=== PATIENT | female | born 1950 | race African-American/Black ===

== ENCOUNTER → 2017-05-01 | Outpatient (CLI) | payer MEDICARE ==
[2016-06-11 17:15] VITALS: BP 136/63
[~2017-05-01] MED LIST: ASPI-630 PO; ATOR20TA58 PO; CARV6.252 PO; CRESTOR10 MG PO; GLIP5TAB10 PO; HYDR-963 PO; ISOS40TA11 PO; METF500T4 PO; OMEP20CA9 PO; ONDA4TAB10 SL; REGADENOSON 0.4 MG/5 ML DISP.SYRIN. IV ONE; SITA100T PO
--- NOTE | 2017-05-02 17:41 | RAD ---
APPROVED REPORT Test Type: Pharmacological Stress Nurse/Tech: Guillermina Benz R.N. Test Indications: chest pressure Cardiac History: HTN Medications: See Electronic Medical Record Medical History: See Electronic Medical Record Resting ECG: SR Resting Heart Rate: 63 bpm Resting Blood Pressure: 129/58mmHg Pretest Chest Pain: None Nurse/Tech Notes S1S2, lungs CTA Consent: The procedure was explained to the patient in lay terms. Informed consent was witnessed. Baldemar eout was entered into [employer]. History and Stress Test performed by RT Mariza (R) (N) Pharm. Details Pharmacologic stress testing was performed using 0.4mg per 5ml of regadenoson given intravenously ove r 7-10 seconds. Stress Symptoms dyspnea with chest pressure that went from front to back at a scale of 10/10 then eased up and resolv ed by the end of recovery period. T wave did become inverted in leads I-III,AVF, V4-V6 post lexiscan administration but resumed their normal upright position by the end of recovery period. POST EXERCISE Reason for Termination: Infusion complete Max HR: 101 bpm Max Blood Pressure: 132/62mmHg Blood Pressure response to exercise: Normal blood pressure response during stress. Heart Rate response to exercise: wnl Chest Pain: Yes. see above note Arrhythmia: No. ST Change: No. Imaging Protocol IMAGE PROTOCOL: Rest Tc-99m/stress Tc-99m 1 day Rest: Stress: Viability: Radiopharm.Tc99m [id number] Sestamibi Jygk55jPk 32mCi Duration 12min. 8min. Img Date 05/01/2017 05/01/2017 Rest Admin Site:IV - Left AntecubitalAdministrator:MAXINE Joshi, ARRT (R)(N) Stress Admin Site: IV - Left AntecubitalAdministrator: RT Mariza (R)(N) STRESS DATA End Diast. Vol.74.0mlAv. Heart Rate72.0bpm End Syst. Vol.19.0mlCO Index BSA0.0L/min Myocardial Zwma819.0gEject. Lppqjlpx79.0% Stress Rates Pk. Fill Rate3.21EDV/secLVtime Pk. Fill 225.29msec Pk. Empty Rate4.02ESV/secLVtime Pk. Ceyun445.12msec / Pk. Fill1.13EDV/sec Stress Scores Regional WT1.00Summed WT3.00 Regional WM0.00Summed WM0.00 LV Perf. Quant 17 Seg. SSS0.00 17 Seg. SRS1.00 17 Seg. SDS0.00 Stress Defect Extent (% LAD)0.00Rest Defect Extent (% LAD)0.00Rev. Defect Extent (% LAD)0.00 Stress Defect Extent (% LCX) 0.00Rest Defect Extent (% LCX)0.00Rev. Defect Extent (% LCX)0.00 Stress Defect Extent (% RCA)0.00Rest Defect Extent (% RCA)0.00Rev. Defect Extent (% RCA)0.00 Stress Defect Extent (% ABDIAS)0.00Rest Defect Extent (% ABDIAS)0.00Rev. Defect Extent (% ABDIAS)0.00 Conclusion 1. No electrocardiographic changes suggestive of myocardial ischemia with pharmacological stress. 2. No perfusion defects to suggest myocardial ischemia or scar. 3. Normal wall motion and wall thickening with an ejection fraction of 74%. 4. Scan indicates low risk for future cardiac events
== END | disposition home or self-care (01) ==
LOC: NM 08:15
PROVIDERS: ATTEND Specialist
DX: R07.9 Chest pain, unspecified (principal); I25.10 Atherosclerotic heart disease of native coronary artery without angina pectoris
CPT/HCPCS: 78452; 93017; 96374; 96375; 96376; A9500; J2785

== ENCOUNTER → 2017-07-28 | Outpatient (CLI) | payer MEDICARE ==
[2016-06-11 17:15] VITALS: BP 136/63
[~2017-07-28] MED LIST changes: -REGADENOSON 0.4 MG/5 ML DISP.SYRIN. IV ONE
--- NOTE | 2017-07-28 11:25 | RAD ---
MR of the right wrist Indication: Right wrist pain and swelling extending into the hand for one month. Severe pain. Technique: Standard multiplanar sequences are obtained. Findings: Triangular fibrocartilage: Mild signal heterogeneity at the ulnar attachment. No evidence of tear, however. Extensor carpi ulnaris tendon: Mild tendinosis signal. Other extensor compartments: Mild extensor digitorum tendon sheath fluid. Mild signal within some of the fourth extensor compartment tendons as well. Minimal fluid around the first extensor compartment tendons. Flexor tendons: Intact Median nerve: Unremarkable Scapholunate ligament: Mild heterogeneous signal but no evidence of rupture or discontinuity. Lunotriquetral ligament: No evidence of a tear. Fluid: No significant effusion. Joints: Mild primary osteoarthritis about the joints. This is greatest at the triscaphe. Bones: Bone marrow signal abnormality at the medial lunate, with subchondral surface involvement, demonstrating hypointense T1 and hyperintense or cystic T2 signal. No evidence of aggressive bone destruction or acute fracture. Scattered small carpal cysts are noted. Impression: 1. Mild fourth extensor compartment tenosynovitis. 2. Mild first compartment tendon sheath fluid or tenosynovitis. 3. Mild extensor carpi ulnaris tendinosis. 4. Marrow changes of the proximal medial lunate could be degenerative. This could also be secondary to ulnolunate impaction. Electronically signed by: Colin Roca MD (07/28/2017 11:22 AM) [id number]
== END | disposition home or self-care (01) ==
LOC: MRI 09:12
PROVIDERS: ATTEND Specialist
DX: M19.031 Primary osteoarthritis, right wrist (principal); M65.88 Other synovitis and tenosynovitis, other site
CPT/HCPCS: 73221

== ENCOUNTER 2020-04-09 23:52 | Observation (INO) | payer MEDICARE, MEDICAID ==
[~2020-04-09] VITALS: Ht 160 cm; Wt 69.2 kg
[~2020-04-09 23:52] MED LIST changes: +CARV6.2511 PO; -CARV6.252 PO; +HYDR-3135 PO; -HYDR-963 PO; +METF500T16 PO; -METF500T4 PO; +OMEP20CA16 PO; -OMEP20CA9 PO
[2020-04-10] VITALS (16 sets, daily range): BP systolic 129–178; BP diastolic 64–81
[2020-04-10 00:20] LABS: BILIRUBIN,URINE NEGATIVE (NEG); CLARITY,URINE CLEAR; COLOR,URINE YELLOW; NITRITE,URINE NEGATIVE (NEG); PROTEIN,URINE NEGATIVE (NEG-TRACE); UROBILINOGEN,URINE 0.2 mg/dL (0.2 mg/dL)
[2020-04-10 00:41] LABS: BASO % 1 % (0-3); EOS % 0 % (0-3); HEMATOCRIT 28.9 % (36.0-47.0); HEMOGLOBIN 9.7 g/dL (12.0-15.5); LYMPH # 0.3 x10^3/uL (1.0-4.8); LYMPH % 5 % (24-48); MEAN CORPUSCULAR HEMOGLOBIN 28 pg (25-35); MEAN CORPUSCULAR HGB CONC 33 g/dL (31-37); MEAN CORPUSCULAR VOLUME 82 fL (79-100); MONO # 0.1 x10^3/uL (0.0-1.1); MONO % 2 % (0-9); NEUT % 92 % (31-73); PLATELET COUNT 187 x10^3/uL (140-400); RED BLOOD COUNT 3.51 x10^6/uL (3.50-5.40); RED CELL DISTRIBUTION WIDTH 18.6 % (11.5-14.5); WHITE BLOOD COUNT 5.5 x10^3/uL (4.0-11.0)
--- NOTE | 2020-04-10 00:41 | PHYS DOC ---
Past Medical History Past Medical History: CAD, Cancer (Ovarian), Diabetes-Type II, DVT, GERD, Hypertension, IA Past Surgical History: Angioplasty, Other Additional Past Surgical Histo: WITH STENT PLACEMENT Smoking Status: Never Smoker Alcohol Use: Occasionally Drug Use: None General Adult EDM: Chief Complaint: CHEST PAIN HPI: HPI: Patient is a 69 year old female presents via EMS with report of left anterior chest pain which is been ongoing for the past 2 hours. Patient reports pain is reproducible on palpation. Patient reports taking 325 mg of aspirin prior to arrival as well as 2 nitroglycerin tablets sublingually. Reports pain continued and therefore called EMS. Patient denies dizziness, shortness of air, leg swelling, or calf tenderness. Patient also denies diaphoresis or current nausea. Patient does have significant cardiac risk factors including diabetes mellitus, high blood pressure, and prior CAD with stent placement. Patient reports she currently finished her first round of chemotherapy and radiation therapy for ovarian cancer at [facility]. Patient reports she was to start her second round of chemotherapy tomorrow. Denies trauma. Denies fever or chills. Denies known sick contacts. Denies known exposure to COVID19. Review of Systems: Review of Systems: Constitutional: Denies fever or chills Eyes: Denies redness or eye pain HENT: Denies nasal congestion or sore throat Respiratory: Denies cough or shortness of breath Cardiovascular: Reports chest pain; denies palpitations GI: Denies abdominal pain, nausea, or vomiting : Denies dysuria or hematuria Musculoskeletal: Denies back pain or joint pain Integument: Denies rash or skin lesions Neurologic: Denies headache, focal weakness or sensory changes Complete systems were reviewed and found to be within normal limits, except as documented in this note. Heart Score: HEART Score for Chest Pain: HEART Score for Chest Pain Response (Comments) Value History Moderately Suspicious 1 ECG Normal 0 Age > 65 2 Risk Factors >3 Risk Factors or Hx CAD 2 Troponin < Normal Limit 0 Total 5 Risk Factors: Risk Factors: DM, Current or recent (<one month) smoker, HTN, HLP, family history of CAD, obesity. Risk Scores: Score 0 - 3: 2.5% MACE over next 6 weeks - Discharge Home Score 4 - 6: 20.3% MACE over next 6 weeks - Admit for Clinical Observation Score 7 - 10: 72.7% MACE over next 6 weeks - Early Invasive Strategies Current Medications: Current Medications Medications (Trade) Dose Ordered Sig/Bassam Start Time Stop Time Status Last Admin Dose Admin Sodium Chloride 1,000 ml @ 1,000 mls/hr 1X ONCE 04/10/20 00:00 04/10/20 00:59 04/10/20 00:25 1,000 MLS/HR Allergies: Allergies: Allergies Coded Allergies Type Severity Reaction Last Updated Verified Sulfa (Sulfonamide Antibiotics) Allergy Intermediate ITCHING,BURNING FEELING 06/11/16 No oxycodone Allergy Intermediate ITCHING,BURNING 06/11/16 Yes Physical Exam: PE: Constitutional: Well developed, well nourished, no acute distress, non-toxic appearance HENT: Normocephalic, atraumatic, oropharynx moist Eyes: Conjunctiva normal, no discharge Neck: Normal range of motion, no tenderness, supple Cardiovascular: Heart rate normal, regular rhythm Lungs & Thorax: Bilateral breath sounds clear to auscultation, no wheezing, left anterior chest wall pain on palpation Abdomen: Soft, no tenderness Skin: Warm, dry, no erythema, no rash Extremities: No tenderness, ROM intact, no edema Neurologic: Alert and oriented X 3, no focal deficits noted Psychologic: Affect normal, judgment normal EKG: EKG: @0009 NSR at 84bpm, NO ST elevation, QRS 88ms, QT/QTc 348/414ms, Q wave III Radiology/Procedures: Radiology/Procedures: PROCEDURE: PORTABLE CHEST 1V AP portable chest radiograph 04/10/2020 Clinical History: Chest pain. An AP erect portable digital radiograph of the chest was obtained. A right internal jugular Bvyugu-t-Wkvv type catheter is seen with its tip extending to overlie the superior vena cava. Mild elevation of the right hemidiaphragm is noted. The cardiac silhouette is borderline enlarged. The thoracic aorta is tortuous. Atherosclerotic calcification of the thoracic aorta is seen. No acute pulmonary infiltrate is noted. No pneumothorax or pleural effusion is seen. Minimal S-shaped curvature of the thoracolumbar spine is noted. IMPRESSION: No acute abnormality is seen. Electronically signed by: Dennis Lopez MD (04/10/2020 1:48 AM) [id number] Course & Med Decision Making: Course & Med Decision Making Pertinent Labs and Imaging studies reviewed. (See chart for details) Patient presents with report of chest pain. Pain reproducible on palpation of left chest. Patient with significant cardiac risk factors. Also history of prior DVT and current ovarian cancer for which patient has started chemotherapy and radiation therapy. Patient had taken 324mg of Aspirin prior to arrival. EKG stable. Labs obtained and posted to chart. Initial troponin WNL. Creatinine elevated from prior. Unable to obtain CTA chest due to decreased renal function. CXR without acute process. D-dimer elevated. VQ scan ordered. Patient not tachycardic or hypoxia. No calf tenderness or unilateral leg swelling. PE less likely but still requiring further evaluation. Will hold empiric anticoagulation until VQ scan. Hyperglycemia addressed. HEART score 5. Patient requiring admission for further evaluation and treatment. Discussed with Dr. Sainz (hospitalist) who is in agreement with admission. Discussed findings and plan with patient and family, who acknowledge understanding and agreement. Bradley Disclaimer: Bradley Disclaimer: This electronic medical record was generated, in whole or in part, using a voice recognition dictation system. Departure Departure Impression: Primary Impression: Chest pain, rule out acute myocardial infarction Additional Impressions: Hyperglycemia Elevated d-dimer Acute renal insufficiency Disposition: ADMITTED INPATIENT Admitting Physician: FABRICE Carr) Condition: STABLE Referrals: CRYSTAL ESPINAL D.O. (PCP) BRII DANIELS DO April 10, 2020 00:41
[2020-04-10 00:51] LABS: CALCIUM 8.8 mg/dL (8.5-10.1); CREATININE 1.5 mg/dL (0.6-1.0); GFR 41.8; POTASSIUM 5.3 mmol/L (3.5-5.1)
[2020-04-10 00:58] LABS: ALBUMIN 3.7 g/dL (3.4-5.0); ALBUMIN/GLOBULIN RATIO 1.3 (1.0-1.7); MAGNESIUM 1.8 mg/dL (1.8-2.4); TOTAL BILIRUBIN 0.4 mg/dL (0.2-1.0); TOTAL PROTEIN 6.6 g/dL (6.4-8.2)
[2020-04-10] MEDS ORDERED: CONTRAST GIVEN. MC PRN (01:00)
[2020-04-10] MEDS ORDERED: IOHEXOL 350 MG/ML 100 ML VIAL. IV ONE (01:00)
[2020-04-10 01:06] LABS: BACTERIA,URINE MODERATE /HPF (0-FEW); SQUAMOUS EPITHELIAL CELL,UR FEW /LPF
[2020-04-10 01:19] LABS: CREATINE KINASE 113 U/L (26-192)
[2020-04-10 01:40] LABS: PROTHROMBIN TIME PATIENT 13.2 SEC (11.7-14.0)
[2020-04-10] MEDS ORDERED: ONDANSETRON PF 4 MG/2 ML VIAL. IV PRN (01:45)
[2020-04-10] MEDS ORDERED: fentaNYL PF VIAL 100 MCG/2 ML VIAL IV PRN (01:45)
[2020-04-10] MEDS ORDERED: DEXTROSE 50% 25 GM / 50ML DISP.SYRIN. IV PRN (01:45)
[2020-04-10] MEDS ORDERED: INSULIN REGULAR 100 UNIT/ML 3ML VIAL. SQ ONE (01:45)
--- NOTE | 2020-04-10 01:50 | RAD ---
AP portable chest radiograph 04/10/2020 Clinical History: Chest pain. An AP erect portable digital radiograph of the chest was obtained. A right internal jugular Iacqjo-y-Uvsg type catheter is seen with its tip extending to overlie the superior vena cava. Mild elevation of the right hemidiaphragm is noted. The cardiac silhouette is borderline enlarged. The thoracic aorta is tortuous. Atherosclerotic calcification of the thoracic aorta is seen. No acute pulmonary infiltrate is noted. No pneumothorax or pleural effusion is seen. Minimal S-shaped curvature of the thoracolumbar spine is noted. IMPRESSION: No acute abnormality is seen. Electronically signed by: Dennis Lopez MD (04/10/2020 1:48 AM) [id number]
[2020-04-10 01:56] LABS: D-DIMER 1.28 ug/mlFEU (0.00-0.50)
[2020-04-10 02:46] LABS: % BANDS 9 % (0-9); % LYMPHS 4 % (24-48); % MONOS 2 % (0-10); % SEGS 85 % (35-66); ANISOCYTOSIS SLIGHT; NUCLEATED RBC 1; PLT ESTIMATE ADEQUATE (ADEQUATE); TOXIC VACUOLATION SLIGHT
--- NOTE | 2020-04-10 06:43 | EKG ---
[facility] [address] [place] [address] Test Date: 2020-04-10 Test Time: 00:09:57 Pat Name: YOLANDE QUIÑONES Department: Room: 2 1 Gender: F Front Desk Agent: : [id number] Requested By: BRII DANIELS Order Number: [id number] Reading MD: Erick Urena Measurements Intervals Valders Rate: 84 P: 43 VA: 156 QRS: 31 QRSD: 88 T: 38 QT: 348 QTc: 414 Interpretive Statements SINUS RHYTHM Electronically Signed On 04-10-2020 8:44:40 CDT by Erick Urena
[2020-04-10] MEDS: INSULIN LISPRO 300 UNITS/3 ML VIAL. SQ SCH ×3 (08:00→18:27)
--- NOTE | 2020-04-10 09:24 | PDOC2 ---
VERÓNICA BRAVO [employer] 04/10/20 0924: CARDIAC CONSULT DATE OF CONSULT Date of Consult DATE: 04/10/20 TIME: 09:01 REASON FOR CONSULT Reason for Consult: chest pain r/o ACS REFERRING PHYSICIAN Referring Physician: Alistair SOURCE Source: Chart review, Patient HISTORY OF PRESENT ILLNESS HISTORY OF PRESENT ILLNESS This is a pleasant 69 yo female admitted for complains of chest pain. Reports that she has been having exertional CP in the last week and that she was just not telling her family about it. She has been feeling fatigue. 2 days ago she started feeling nauseated. Yesterday afternoon she started having sustained chest pressure that she finally took tylenol 3 and decided to take 2 NTG. No diaphoresis but positive for SOA. She has hx of NH and had stents placed >2 yrs ago x4 per her recollection. She has been taking ASA, lipitor and BP meds except that she was taken off losartan before. No recent falls or injury. No fever or chills or cough. Denies any renal dysfunction but her renal labs were abnormal. She does take metformin. She also take glipizde and januvia and takes insulin as well. Her ceramic saw tender is Dr. Young and the last time she saw3 her was 10/2019. PAST MEDICAL HISTORY Cardiovascular: CAD, HTN, NH, Hyperlipidemia CENTRAL NERVOUS SYSTEM: Periperal neuropathy Heme/Onc: Cancer (ovarian with chemo and radiation), Other (DVT LE) Hepatobiliary: No pertinent hx Musculoskeletal: Osteoarthritis Rheumatologic: No pertinent hx Infectious disease: No pertinent hx ENT: No pertinent hx Renal/: No pertinent hx Endocrine: Diabetes (2) Dermatology: No pertinent hx PAST SURGICAL HISTORY Past Surgical History: Hysterectomy, Other (portacath placement) FAMILY HISTORY Family History: Diabetes SOCIAL HISTORY Smoke: No ALCOHOL: occassional Drugs: None Lives: with Family CURRENT MEDICATIONS CURRENT MEDICATIONS Current Medications Medications (Trade) Dose Ordered Sig/Bassam Route PRN Reason Start Time Stop Time Status Last Admin Dose Admin Sodium Chloride 1,000 ml @ 1,000 mls/hr 1X ONCE IV 04/10/20 00:00 04/10/20 00:59 DC 04/10/20 00:25 Insulin Human Regular (HumuLIN R VIAL) 10 unit 1X ONCE SQ 04/10/20 01:45 04/10/20 01:51 DC 04/10/20 02:14 ALLERGIES ALLERGIES: Coded Allergies: Sulfa (Sulfonamide Antibiotics) (Unverified Allergy, Intermediate, ITCHING,BURNING FEELING, 04/10/20) oxycodone (Verified Allergy, Intermediate, ITCHING,BURNING, 04/10/20) PHYSICAL EXAM General: Alert, Oriented X3, Cooperative, No acute distress HEENT: Atraumatic, Mucous membr. moist/pink Lungs: Clear to auscultation, Normal air movement Heart: Regular rate (SR), Normal S1, Normal S2, No murmurs Abdomen: Soft, No tenderness Extremities: No cyanosis, No edema Skin: No breakdown, No significant lesion Neuro: Normal speech, Sensation intact Psych/Mental Status: Mental status NL, Mood NL MUSCULOSKELETAL: Osteoarthritic changes both hands VITALS/I&O VITALS/I&O: Vital Signs Date Time Temp Pulse Resp B/P (MAP) Pulse Ox O2 Delivery O2 Flow Rate FiO2 04/10/20 07:45 98.1 84 16 129/64 (85) 99 Room Air 98.1 I & O 04/09/20 04/09/20 04/10/20 14:59 22:59 06:59 Intake Total 0 ml Balance 0 ml LABS Lab: Laboratory Tests Test 04/10/20 00:03 04/10/20 00:22 04/10/20 02:25 04/10/20 04:45 Urine Collection Type Unknown Urine Color Yellow Urine Clarity Clear Urine pH 5.0 (<5.0-8.0) Urine Specific [place] >=1.030 (1.000-1.030) Urine Protein Negative mg/dL (NEG-TRACE) Urine Glucose (UA) >=1000 mg/dL (NEG) Urine Ketones (Stick) Negative mg/dL (NEG) Urine Blood Negative (NEG) Urine Nitrite Negative (NEG) Urine Bilirubin Negative (NEG) Urine Urobilinogen Dipstick 0.2 mg/dL (0.2 mg/dL) Urine Leukocyte Esterase Negative (NEG) Urine RBC 3-5 /HPF (0-2) Urine WBC 5-10 /HPF (0-4) Urine Squamous Epithelial Cells Few /LPF Urine Bacteria Moderate /HPF (0-FEW) White Blood Count 5.5 x10^3/uL (4.0-11.0) Red Blood Count 3.51 x10^6/uL (3.50-5.40) Hemoglobin 9.7 g/dL (12.0-15.5) L Hematocrit 28.9 % (36.0-47.0) L Mean Corpuscular Volume 82 fL (79-100) Mean Corpuscular Hemoglobin 28 pg (25-35) Mean Corpuscular Hemoglobin Concent 33 g/dL (31-37) Red Cell Distribution Width 18.6 % (11.5-14.5) H Platelet Count 187 x10^3/uL (140-400) Neutrophils (%) (Auto) 92 % (31-73) H Lymphocytes (%) (Auto) 5 % (24-48) L Monocytes (%) (Auto) 2 % (0-9) Eosinophils (%) (Auto) 0 % (0-3) Basophils (%) (Auto) 1 % (0-3) Neutrophils # (Auto) 5.0 x10^3/uL (1.8-7.7) Lymphocytes # (Auto) 0.3 x10^3/uL (1.0-4.8) L Monocytes # (Auto) 0.1 x10^3/uL (0.0-1.1) Eosinophils # (Auto) 0.0 x10^3/uL (0.0-0.7) Basophils # (Auto) 0.0 x10^3/uL (0.0-0.2) Segmented Neutrophils % 85 % (35-66) H Band Neutrophils % 9 % (0-9) Lymphocytes % 4 % (24-48) L Monocytes % 2 % (0-10) Nucleated Red Blood Cells 1 Toxic Vacuolation Slight Platelet Estimate Adequate (ADEQUATE) Anisocytosis Slight Prothrombin Time 13.2 SEC (11.7-14.0) Prothrombin Time INR 1.0 (0.8-1.1) Activated Partial Thromboplast Time 29 SEC (24-38) D-Dimer (Vanessa) 1.28 ug/mlFEU (0.00-0.50) H Sodium Level 139 mmol/L (136-145) Potassium Level 5.3 mmol/L (3.5-5.1) H Chloride Level 103 mmol/L (98-107) Carbon Dioxide Level 21 mmol/L (21-32) Anion Gap 15 (6-14) H Blood Urea Nitrogen 30 mg/dL (7-20) H Creatinine 1.5 mg/dL (0.6-1.0) H Estimated GFR (Cockcroft-Gault) 41.8 BUN/Creatinine Ratio 20 (6-20) Glucose Level 441 mg/dL (70-99) H Calcium Level 8.8 mg/dL (8.5-10.1) Magnesium Level 1.8 mg/dL (1.8-2.4) Total Bilirubin 0.4 mg/dL (0.2-1.0) Aspartate Amino Transferase (AST) 22 U/L (15-37) Alanine Aminotransferase (ALT) 19 U/L (14-59) Alkaline Phosphatase 110 U/L (46-116) Creatine Kinase 113 U/L (26-192) Creatine Kinase MB (Mass) < 0.5 ng/mL (0.0-3.6) Creatine Kinase MB Relative Index % (0-4) Troponin I Quantitative 0.037 ng/mL (0.000-0.055) 0.205 ng/mL (0.000-0.055) DB-Lgm-F-Type Natriuretic Peptide 123 pg/mL (0-124) Total Protein 6.6 g/dL (6.4-8.2) Albumin 3.7 g/dL (3.4-5.0) Albumin/Globulin Ratio 1.3 (1.0-1.7) Lipase 115 U/L (73-393) Glucose (Fingerstick) 318 mg/dL (70-99) H Test 04/10/20 07:13 04/10/20 07:27 Glucose (Fingerstick) 208 mg/dL (70-99) H Troponin I Quantitative 0.281 ng/mL (0.000-0.055) Laboratory Tests 04/10/20 00:22 Laboratory Tests 04/10/20 00:22 STRESS TEST STRESS TEST Conclusion 1. No electrocardiographic changes suggestive of myocardial ischemia with pharmacological stress. 2. No perfusion defects to suggest myocardial ischemia or scar. 3. Normal wall motion and wall thickening with an ejection fraction of 74%. 4. Scan indicates low risk for future cardiac events DATE: 05/02/17 2241 ASSESSMENT/PLAN ASSESSMENT/PLAN 1. Chest pain: consistent with UA. 2. MARY: treated with IVF. Prerenal 3. CAD: reported 4 stents >2 yrs ago 4. HTN: controlled 5. HLP 6. Ovarian CA: taking chemotherapy, reported no mets. 7. DM2: per PCP Recommendations 1. LHC today pending labs, risks and benefits explained and agreeable to proceed 2. Will restart IVF. Hold metformin. 3. Consider discontinuing glipizide with concomitant use of insulin at home. She does have hypoglycemia episode at home 4. Continue ASA and optimize statin. 5. TTE, TSH and lipids. EKG MAGGY LR MD 04/10/20 1656: CARDIAC CONSULT ASSESSMENT/PLAN ASSESSMENT/PLAN Patient seen and examined. Agree with above nurse practitioner note. Cardiac catheterization revealed a critical left circumflex stenosis. She und erwent successful PCI. Supportive care. See cath report for full details VERÓNICA BRAVO APRN April 10, 2020 09:24 MAGGY LR MD April 10, 2020 16:56
[2020-04-10 09:28] LABS: CALCIUM 8.6 mg/dL (8.5-10.1); CREATININE 1.1 mg/dL (0.6-1.0); GFR 59.8; POTASSIUM 3.9 mmol/L (3.5-5.1)
[2020-04-10] MEDS ORDERED: IV NORMAL SALINE 1000ML BAG 1,000 ML IV ONE ×2 (09:30)
[2020-04-10 09:34] LABS: MAGNESIUM 1.9 mg/dL (1.8-2.4)
[2020-04-10 09:38] LABS: CHOLESTEROL/HDL RATIO 3.4
[2020-04-10] MEDS ORDERED: LIDOCAINE 1% Multi-Dose 20 ML VIAL. ONE (10:02)
[2020-04-10] MEDS ORDERED: IODIXANOL 320 MG/ML 100 ML VIAL. ONE (10:02)
[2020-04-10] MEDS ORDERED: MIDAZOLAM HCL/PF 2 MG/2 ML VIAL. ONE ×2 (10:10→10:57)
[2020-04-10] MEDS ORDERED: fentaNYL PF VIAL 100 MCG/2 ML VIAL ONE (10:10)
[2020-04-10] MEDS ORDERED: VERAPAMIL 5 MG/2 ML VIAL. ONE (10:40)
[2020-04-10] MEDS ORDERED: HEPARIN for IV BOLUS 10,000 UNIT/10 ML VIAL. ONE (10:40)
[2020-04-10] MEDS ORDERED: NITROGLYCERIN 200 MCG/2 ML SYRINGE FOR CATH/VASC LAB. ONE (10:41)
--- NOTE | 2020-04-10 10:48 | PDOC1 ---
History and Physical Date of Admission Date of Admission 04/10/2020 Identification/Chief Complaint Chief Complaint my chest hurts Source Source: Chart review History of Present Illness History of Present Illness Patient is a 69-year-old female with past medical history of coronary artery disease and diabetes mellitus who comes in to our institution with sudden onset of chest discomfort which is located on the precordial area. She refers radiation to under his arm and also radiation to the back. She describes the pain as a pressure-like sensation lasting at least 5 minutes no aggravating factors no alleviating factors. Patient tried to self medicate with aspirin Tylenol 3 and nitroglycerin with very little relief of her symptoms reason why she decided to come to the emergency department for further evaluation and treatment. The patient was also check for d-dimer and it was mildly elevated given that the patient has a history of ovarian cancer and is undergoing chemotherapy at the present time she is at high risk for hypercoagulable states. She also has a renal dysfunction reason why she could not get an CT scan of her chest at this time. VQ scan has been requested as per ER physician and at the time of my evaluation the patient is in no acute distress no chest discomfort has been reported overnight she denies sensation of impending doom no diaphoresis no nausea vomiting no diarrhea no other symptoms associated with her chest discomfort. The patient denies sick contacts no cough sputum production no pleurisy has been reported pain is somewhat reproducible which is reassuring but given her comorbidities and her history of coronary artery disease she will be admitted for further cardiological evaluation. Reassurance has been provided and the plan of care discussed in detail all concerns were addressed to the best of my abilities Past Medical History Cardiovascular: CAD, HTN, DC, Hyperlipidemia CENTRAL NERVOUS SYSTEM: Periperal neuropathy Heme/Onc: Cancer (ovarian with chemo and radiation), Other (DVT LE) Hepatobiliary: No pertinent hx Rheumatologic: No pertinent hx Infectious disease: No pertinent hx ENT: No pertinent hx Renal/: No pertinent hx Endocrine: Diabetes (2) Dermatology: No pertinent hx Past Surgical History Past Surgical History: Hysterectomy, Other (portacath placement) Family History Family History: Diabetes Social History Smoke: No ALCOHOL: occassional Drugs: None Current Problem List Problem List Problems Medical Problems: (1) Acute renal insufficiency Status: Acute (2) Chest pain, rule out acute myocardial infarction Status: Acute (3) Elevated d-dimer Status: Acute (4) Hyperglycemia Status: Acute Current Medications Current Medications Current Medications Medications (Trade) Dose Ordered Sig/Bassam Start Time Stop Time Status Last Admin Dose Admin Dextrose (Dextrose 50%-Water Syringe) 12.5 gm PRN Q15MIN PRN 04/10/20 01:45 Fentanyl Citrate (Fentanyl 2ml Vial) 100 mcg STK-MED ONCE 04/10/20 10:10 04/10/20 10:10 DC Heparin Sodium (Porcine) (Heparin Sodium) 10,000 unit STK-MED ONCE 04/10/20 10:40 04/10/20 10:41 DC Heparin Sodium/ Sodium Chloride 1,000 ml @ As Directed STK-MED ONCE 04/10/20 10:02 04/10/20 10:02 DC Info (CONTRAST GIVEN -- Rx MONITORING) 1 each PRN DAILY PRN 04/10/20 01:00 04/12/20 00:59 Insulin Human Lispro (HumaLOG) 0-5 UNITS TIDWMEALS 04/10/20 08:00 Insulin Human Regular (HumuLIN R VIAL) 10 unit 1X ONCE 04/10/20 01:45 04/10/20 01:51 DC 04/10/20 02:14 10 UNIT Iodixanol (Visipaque 320) 100 ml STK-MED ONCE 04/10/20 10:02 04/10/20 10:02 DC Iohexol (Omnipaque 350 Mg/ml) 100 ml 1X ONCE 04/10/20 01:00 04/10/20 01:01 DC Lidocaine HCl (Lidocaine 1% 20ml Vial) 20 ml STK-MED ONCE 04/10/20 10:02 04/10/20 10:02 DC Midazolam HCl (Versed) 2 mg STK-MED ONCE 04/10/20 10:10 04/10/20 10:10 DC Nitroglycerin (Nitroglycerin) 200 mcg STK-MED ONCE 04/10/20 10:41 04/10/20 10:41 DC Ondansetron HCl (Zofran) 4 mg PRN Q8HRS PRN 04/10/20 01:45 04/11/20 01:44 Sodium Chloride 1,000 ml @ 100 mls/hr 1X ONCE 04/10/20 09:30 04/10/20 19:29 04/10/20 09:38 100 MLS/HR Verapamil HCl (Verapamil) 5 mg STK-MED ONCE 04/10/20 10:40 04/10/20 10:41 DC Allergies Allergies Allergies Coded Allergies Type Severity Reaction Last Updated Verified Sulfa (Sulfonamide Antibiotics) Allergy Intermediate ITCHING,BURNING FEELING 04/10/20 No oxycodone Allergy Intermediate ITCHING,BURNING 04/10/20 Yes ROS Review of System CONSTITUTIONAL: No fever or chills EYES: No recent changes SKIN: No rash or itching CARDIOVASCULAR: No chest pain, syncope, palpitations, or edema RESPIRATORY: No SOB or cough GASTROINTESTINAL: No nausea, vomiting or abdominal pain NEUROLOGICAL: No headaches or weakness ENDOCRINE: No cold or heat intolerance GENITOURINARY: No urgency or frequency of urination MUSCULOSKELETAL: No back pain or joint pain LYMPHATICS: No enlarged lymph nodes PSYCHIATRIC: No anxiety or depression Physical Exam Physical Exam GEN.: No apparent distress. Alert and oriented. HEENT: Head is normocephalic, atraumatic NECK: Supple. LUNGS: Clear to auscultation. HEART: RRR, S1, S2 present. Peripheral pulses intact ABDOMEN: Soft, nontender. Positive bowel sounds. EXTREMITIES: Without any cyanosis. NEUROLOGIC: Normal speech, normal tone PSYCHIATRIC: Normal affect, normal mood. SKIN: No ulcerations Vitals Vitals Vital Signs Date Time Temp Pulse Resp B/P (MAP) Pulse Ox O2 Delivery O2 Flow Rate FiO2 04/10/20 08:30 Room Air 04/10/20 07:45 98.1 84 16 129/64 (85) 99 98.1 Labs Labs Laboratory Tests Test 04/10/20 00:03 04/10/20 00:22 04/10/20 02:25 04/10/20 04:45 Urine Collection Type Unknown Urine Color Yellow Urine Clarity Clear Urine pH 5.0 (<5.0-8.0) Urine Specific Taylors >=1.030 (1.000-1.030) Urine Protein Negative mg/dL (NEG-TRACE) Urine Glucose (UA) >=1000 mg/dL (NEG) Urine Ketones (Stick) Negative mg/dL (NEG) Urine Blood Negative (NEG) Urine Nitrite Negative (NEG) Urine Bilirubin Negative (NEG) Urine Urobilinogen Dipstick 0.2 mg/dL (0.2 mg/dL) Urine Leukocyte Esterase Negative (NEG) Urine RBC 3-5 /HPF (0-2) Urine WBC 5-10 /HPF (0-4) Urine Squamous Epithelial Cells Few /LPF Urine Bacteria Moderate /HPF (0-FEW) White Blood Count 5.5 x10^3/uL (4.0-11.0) Red Blood Count 3.51 x10^6/uL (3.50-5.40) Hemoglobin 9.7 g/dL (12.0-15.5) Hematocrit 28.9 % (36.0-47.0) Mean Corpuscular Volume 82 fL (79-100) Mean Corpuscular Hemoglobin 28 pg (25-35) Mean Corpuscular Hemoglobin Concent 33 g/dL (31-37) Red Cell Distribution Width 18.6 % (11.5-14.5) Platelet Count 187 x10^3/uL (140-400) Neutrophils (%) (Auto) 92 % (31-73) Lymphocytes (%) (Auto) 5 % (24-48) Monocytes (%) (Auto) 2 % (0-9) Eosinophils (%) (Auto) 0 % (0-3) Basophils (%) (Auto) 1 % (0-3) Neutrophils # (Auto) 5.0 x10^3/uL (1.8-7.7) Lymphocytes # (Auto) 0.3 x10^3/uL (1.0-4.8) Monocytes # (Auto) 0.1 x10^3/uL (0.0-1.1) Eosinophils # (Auto) 0.0 x10^3/uL (0.0-0.7) Basophils # (Auto) 0.0 x10^3/uL (0.0-0.2) Segmented Neutrophils % 85 % (35-66) Band Neutrophils % 9 % (0-9) Lymphocytes % 4 % (24-48) Monocytes % 2 % (0-10) Nucleated Red Blood Cells 1 Toxic Vacuolation Slight Platelet Estimate Adequate (ADEQUATE) Anisocytosis Slight Prothrombin Time 13.2 SEC (11.7-14.0) Prothromb Time International Ratio 1.0 (0.8-1.1) Activated Partial Thromboplast Time 29 SEC (24-38) D-Dimer (Vanessa) 1.28 ug/mlFEU (0.00-0.50) Sodium Level 139 mmol/L (136-145) Potassium Level 5.3 mmol/L (3.5-5.1) Chloride Level 103 mmol/L (98-107) Carbon Dioxide Level 21 mmol/L (21-32) Anion Gap 15 (6-14) Blood Urea Nitrogen 30 mg/dL (7-20) Creatinine 1.5 mg/dL (0.6-1.0) Estimated GFR (Cockcroft-Gault) 41.8 BUN/Creatinine Ratio 20 (6-20) Glucose Level 441 mg/dL (70-99) Calcium Level 8.8 mg/dL (8.5-10.1) Magnesium Level 1.8 mg/dL (1.8-2.4) 1.9 mg/dL (1.8-2.4) Total Bilirubin 0.4 mg/dL (0.2-1.0) Aspartate Amino Transf (AST/SGOT) 22 U/L (15-37) Alanine Aminotransferase (ALT/SGPT) 19 U/L (14-59) Alkaline Phosphatase 110 U/L (46-116) Creatine Kinase 113 U/L (26-192) Creatine Kinase MB (Mass) < 0.5 ng/mL (0.0-3.6) Creatine Kinase MB Relative Index % (0-4) Troponin I Quantitative 0.037 ng/mL (0.000-0.055) 0.205 ng/mL (0.000-0.055) CI-Edl-S-Type Natriuretic Peptide 123 pg/mL (0-124) Total Protein 6.6 g/dL (6.4-8.2) Albumin 3.7 g/dL (3.4-5.0) Albumin/Globulin Ratio 1.3 (1.0-1.7) Lipase 115 U/L (73-393) Glucose (Fingerstick) 318 mg/dL (70-99) Triglycerides Level 58 mg/dL (0-150) Cholesterol Level 171 mg/dL (0-200) LDL Cholesterol, Calculated 108 mg/dL (0-100) VLDL Cholesterol, Calculated 12 mg/dL (0-40) Non-HDL Cholesterol Calculated 120 mg/dL (0-129) HDL Cholesterol 51 mg/dL (40-60) Cholesterol/HDL Ratio 3.4 Thyroid Stimulating Hormone (TSH) 0.189 uIU/mL (0.358-3.74) Test 04/10/20 07:13 04/10/20 07:27 Glucose (Fingerstick) 208 mg/dL (70-99) Sodium Level 144 mmol/L (136-145) Potassium Level 3.9 mmol/L (3.5-5.1) Chloride Level 108 mmol/L (98-107) Carbon Dioxide Level 23 mmol/L (21-32) Anion Gap 13 (6-14) Blood Urea Nitrogen 27 mg/dL (7-20) Creatinine 1.1 mg/dL (0.6-1.0) Estimated GFR (Cockcroft-Gault) 59.8 Glucose Level 231 mg/dL (70-99) Calcium Level 8.6 mg/dL (8.5-10.1) Troponin I Quantitative 0.281 ng/mL (0.000-0.055) Laboratory Tests Test 04/10/20 00:03 04/10/20 00:22 04/10/20 02:25 04/10/20 04:45 Urine Collection Type Unknown Urine Color Yellow Urine Clarity Clear Urine pH 5.0 (<5.0-8.0) Urine Specific Taylors >=1.030 (1.000-1.030) Urine Protein Negative mg/dL (NEG-TRACE) Urine Glucose (UA) >=1000 mg/dL (NEG) Urine Ketones (Stick) Negative mg/dL (NEG) Urine Blood Negative (NEG) Urine Nitrite Negative (NEG) Urine Bilirubin Negative (NEG) Urine Urobilinogen Dipstick 0.2 mg/dL (0.2 mg/dL) Urine Leukocyte Esterase Negative (NEG) Urine RBC 3-5 /HPF (0-2) Urine WBC 5-10 /HPF (0-4) Urine Squamous Epithelial Cells Few /LPF Urine Bacteria Moderate /HPF (0-FEW) White Blood Count 5.5 x10^3/uL (4.0-11.0) Red Blood Count 3.51 x10^6/uL (3.50-5.40) Hemoglobin 9.7 g/dL (12.0-15.5) Hematocrit 28.9 % (36.0-47.0) Mean Corpuscular Volume 82 fL (79-100) Mean Corpuscular Hemoglobin 28 pg (25-35) Mean Corpuscular Hemoglobin Concent 33 g/dL (31-37) Red Cell Distribution Width 18.6 % (11.5-14.5) Platelet Count 187 x10^3/uL (140-400) Neutrophils (%) (Auto) 92 % (31-73) Lymphocytes (%) (Auto) 5 % (24-48) Monocytes (%) (Auto) 2 % (0-9) Eosinophils (%) (Auto) 0 % (0-3) Basophils (%) (Auto) 1 % (0-3) Neutrophils # (Auto) 5.0 x10^3/uL (1.8-7.7) Lymphocytes # (Auto) 0.3 x10^3/uL (1.0-4.8) Monocytes # (Auto) 0.1 x10^3/uL (0.0-1.1) Eosinophils # (Auto) 0.0 x10^3/uL (0.0-0.7) Basophils # (Auto) 0.0 x10^3/uL (0.0-0.2) Segmented Neutrophils % 85 % (35-66) Band Neutrophils % 9 % (0-9) Lymphocytes % 4 % (24-48) Monocytes % 2 % (0-10) Nucleated Red Blood Cells 1 Toxic Vacuolation Slight Platelet Estimate Adequate (ADEQUATE) Anisocytosis Slight Prothrombin Time 13.2 SEC (11.7-14.0) Prothromb Time International Ratio 1.0 (0.8-1.1) Activated Partial Thromboplast Time 29 SEC (24-38) D-Dimer (Vaenssa) 1.28 ug/mlFEU (0.00-0.50) Sodium Level 139 mmol/L (136-145) Potassium Level 5.3 mmol/L (3.5-5.1) Chloride Level 103 mmol/L (98-107) Carbon Dioxide Level 21 mmol/L (21-32) Anion Gap 15 (6-14) Blood Urea Nitrogen 30 mg/dL (7-20) Creatinine 1.5 mg/dL (0.6-1.0) Estimated GFR (Cockcroft-Gault) 41.8 BUN/Creatinine Ratio 20 (6-20) Glucose Level 441 mg/dL (70-99) Calcium Level 8.8 mg/dL (8.5-10.1) Magnesium Level 1.8 mg/dL (1.8-2.4) 1.9 mg/dL (1.8-2.4) Total Bilirubin 0.4 mg/dL (0.2-1.0) Aspartate Amino Transf (AST/SGOT) 22 U/L (15-37) Alanine Aminotransferase (ALT/SGPT) 19 U/L (14-59) Alkaline Phosphatase 110 U/L (46-116) Creatine Kinase 113 U/L (26-192) Creatine Kinase MB (Mass) < 0.5 ng/mL (0.0-3.6) Creatine Kinase MB Relative Index % (0-4) Troponin I Quantitative 0.037 ng/mL (0.000-0.055) 0.205 ng/mL (0.000-0.055) AH-Dnh-S-Type Natriuretic Peptide 123 pg/mL (0-124) Total Protein 6.6 g/dL (6.4-8.2) Albumin 3.7 g/dL (3.4-5.0) Albumin/Globulin Ratio 1.3 (1.0-1.7) Lipase 115 U/L (73-393) Glucose (Fingerstick) 318 mg/dL (70-99) Triglycerides Level 58 mg/dL (0-150) Cholesterol Level 171 mg/dL (0-200) LDL Cholesterol, Calculated 108 mg/dL (0-100) VLDL Cholesterol, Calculated 12 mg/dL (0-40) Non-HDL Cholesterol Calculated 120 mg/dL (0-129) HDL Cholesterol 51 mg/dL (40-60) Cholesterol/HDL Ratio 3.4 Thyroid Stimulating Hormone (TSH) 0.189 uIU/mL (0.358-3.74) Test 04/10/20 07:13 04/10/20 07:27 Glucose (Fingerstick) 208 mg/dL (70-99) Sodium Level 144 mmol/L (136-145) Potassium Level 3.9 mmol/L (3.5-5.1) Chloride Level 108 mmol/L (98-107) Carbon Dioxide Level 23 mmol/L (21-32) Anion Gap 13 (6-14) Blood Urea Nitrogen 27 mg/dL (7-20) Creatinine 1.1 mg/dL (0.6-1.0) Estimated GFR (Cockcroft-Gault) 59.8 Glucose Level 231 mg/dL (70-99) Calcium Level 8.6 mg/dL (8.5-10.1) Troponin I Quantitative 0.281 ng/mL (0.000-0.055) VTE Prophylaxis Ordered VTE Prophylaxis Devices: Yes VTE Pharmacological Prophylaxi: No Assessment/Plan Assessment/Plan Chest pain rule out ACS Hypertension essential History of diabetes mellitus type 2 insulin requiring Ovarian cancer status post chemotherapy and radiation currently on hold, she was scheduled to start her chemotherapy today and she is unsure of her current regimen. Paresthesias? Versus neuropathy? Chemotherapy related? Plan Cardiology evaluation Resume home medications Further recommendations based on the clinical course DVT prophylaxis with SCD ALIDA GOMEZ MD April 10, 2020 10:48
[2020-04-10] MEDS ORDERED: VERAPAMIL 5 MG/2 ML VIAL. IART ONE (11:00)
[2020-04-10] MEDS ORDERED: HEPARIN for IV BOLUS 10,000 UNIT/10 ML VIAL. IART ONE (11:00)
[2020-04-10] MEDS ORDERED: LIDOCAINE 1% Multi-Dose 20 ML VIAL. INJ ONE (11:00)
[2020-04-10] MEDS ORDERED: fentaNYL PF VIAL 100 MCG/2 ML VIAL IV ONE (11:00)
[2020-04-10] MEDS ORDERED: NITROGLYCERIN 200 MCG/2 ML SYRINGE FOR CATH/VASC LAB. IART ONE (11:00)
[2020-04-10] MEDS ORDERED: IODIXANOL 320 MG/ML 100 ML VIAL. IART ONE (11:00)
[2020-04-10] MEDS ORDERED: MIDAZOLAM HCL/PF 2 MG/2 ML VIAL. IV ONE (11:00)
--- NOTE | 2020-04-10 11:15 | NUR ---
This RN gave report to SHYANN Chen on 2N at 1110. Pt currently in catheterization laboratory technician and will transfer to room 205 after completion.
[2020-04-10] MEDS ORDERED: HEPARIN for IV BOLUS 10,000 UNIT/10 ML VIAL. IV ONE (11:30)
[2020-04-10] MEDS ORDERED: PRASUGREL 10 MG TABLET. ONE (11:44)
[2020-04-10] MEDS ORDERED: NITROGLYCERIN 200 MCG/2 ML SYRINGE FOR CATH/VASC LAB. ICAR ONE (11:45)
[2020-04-10] MEDS ORDERED: PRASUGREL 10 MG TABLET. PO ONE (11:45)
--- NOTE | 2020-04-10 12:57 | NUR ---
SS following for discharge planning. SS reviewed pt chart and discussed with pt RN. Pt transferred to room 205. Pt is from home and is currently requiring oxygen. Cardiology consulted. SS will continue to follow for discharge planning.
--- NOTE | 2020-04-10 13:03 | CARD ---
MR#: [id number] Date of Study: 04/10/2020 Ordering Physician: MAGGY LR, Referring Physician: MAGGY LR, Tech: RT Asif (R) APPROVED REPORT Technologist: RT Asif (R) Nurse: Guillermina Benz R.N. Procedure(s) performed: Sedation Time: 73 minutes Dose: 81.33 Gycm2 Fluoro Time: 13.0 Contrast: 99 mL Visipaque Coronary angiography Complex PCI of the LCx HISTORY : The patient is a 69 year-old female with a history of . INDICATION The indication(s) include : non-STEMI . CS Clinical Frailty Scale [facility] Clinical Frailty Scale: Mildly Frail Heart Failure Heart Failure: No CASE TECHNIQUE During this case, Fluoroscopy and low osmolar contrast were used for imaging. PROCEDURE NARRATIVE INFORMED CONSENT: After explaining the risks and benefits of the procedure and alternatives, informed consent was obtained. The patient was brought electively to the cardiac catheterization lab. A timeout was performed confi rming the patient's name, date of , procedure, and site of procedure. All necessary personnel w ere wearing the appropriate protective equipment and radiation monitor devices. (See nursing notes for medications administered). ACCESS: The right wrist was sterilely prepped and draped in the usual fashion. The right wrist was infiltrat ed with 1 mL of 2% lidocaine for subcutaneous anesthesia. A 6 Welsh Terumo glide sheath was inserte d into the right radial artery without difficulty. CORONARY ANGIOGRAPHY: Right and left coronary angiography was performed using a 5Fr TIG 4.0 catheter. All catheter exchan ges and advancements were performed over a guidewire. CLOSURE: At case completion the right radial sheath was removed and a Terumo radial band was applied with 13 m l of air. COMPLICATIONS: The patient tolerated the procedure well and there were no immediate complications. FINDINGS: HEMODYNAMICS: AO: 160/80 CORONARY ANGIOGRAPHY: LM is a large caliber vessel with normal angiographic appearance. LAD is a large caliber vessel with mild luminal irregularities. D1 is a moderate caliber vessel with normal angiographic apeparance. LCx is a large caliber dominant vessel with normal angiographic appearance. OM1 is a small caliber vessel wtih normal angiographic appeance. OM2 is a moderate caliber vessel with a mid 90% stenosis, followed by a patent stent. LPDA is a small to moderate caliber vessel wtih normal angiographic appearance. RCA is a small caliber non-dominant vessel with moderate diffuse irregularities. Interventional technique: PCI of OM2 Due to significant subclavian tortuosity and radial artery spasm further intervention was unable to b e performed via the radial artery. Right groin access was obtained with an 18-gauge needle and a 6 F rench sheath was placed in the right common femoral artery under 2% lidocaine local anesthesia. Next , a 5 Welsh EBU 3.5 guide catheter was used to engage the left main coronary artery. Next, a pro-wa ter wire was used to advance past the stenosis. This case was complex due to tortuosity involving th e left main and circumflex vessels as well as radial artery spasm requiring second access site. The lesion was then angioplastied with a 3.0 x 12 mm balloon and then stented with a 3.25 x 15 mm Alpine drug-eluting stent. Post PCI angiography demonstrated excellent stent expansion with ISRRAEL-3 flow in the vessel no evidence of guidewire related complications. The patient received Prasugrel 60mg at edward e completion. ISRRAEL Flow ISRRAEL Flow (Pre-Intervention): ISRRAEL-3 ISRRAEL Flow (Post-Intervention): ISRRAEL-3 Conclusion 1. Two vessel coronary disease. 2. Patent distal OM2 stent. 3. Successful PCI of the OM2 with implantation of a 3.25/15 YAMILE in an overlapping fashion with the pr evious distal stent. Recommendations 1. ASA 81mg daily 2. Prasugrel 10mg daily 3. High dose statin therapy Signed by : Maggy Lr, Electronically Approved : 04/10/2020 13:03:26
--- NOTE | 2020-04-10 13:22 | RAD ---
Examination: Nuclear medicine perfusion scan Clinical History: Chest pain, elevated d-dimer. Technique: 5.5 mCi of Tc 99m MAA was administered intravenously and spot views were obtained on the gamma camera for a Nuclear Medicine perfusion examination. Static images were reviewed Findings: Perfusion images are homogeneous without perfusion defects. This is very low probability for pulmonary embolism based on the modified PIOPED criteria. Impression: Very low probability for pulmonary embolism. Electronically signed by: Milton Arauz MD (04/10/2020 1:19 PM) [id number]
--- NOTE | 2020-04-10 18:01 | EKG ---
[facility] [address] [place] [address] Test Date: 2020-04-10 Test Time: 17:54:40 Pat Name: YOLANDE QUIÑONES Department: Room: 205 1 Gender: F Steel Molder: ALEXANDRE : 1950 Requested By: MAGGY LR Order Number: [id number] Reading MD: Erick Urena Measurements Intervals [place] Rate: 75 P: 34 MD: 152 QRS: 24 QRSD: 84 T: 26 QT: 350 QTc: 393 Interpretive Statements SINUS RHYTHM NORMAL ECG RI6.02 Compared to ECG 04/10/2020 00:09:57 No significant changes Electronically Signed On 04-11-2020 8:07:19 CDT by Erick Urena
[2020-04-10] MEDS ORDERED: CARVEDILOL 6.25 MG TABLET. PO SCH (19:00)
[2020-04-10] MEDS ORDERED: HYDROcodone/APAP 10/325 1 TAB TABLET PO PRN (20:00)
[2020-04-10] MEDS ORDERED: ATORVASTATIN CALCIUM 40 MG TABLET. PO SCH (21:00)
[2020-04-10] MEDS: CARVEDILOL 6.25 MG TABLET. PO SCH (21:46)
[2020-04-10] MEDS ORDERED: ONDANSETRON ODT 4 MG TAB.RAPDIS. PO PRN (22:00)
[2020-04-11] VITALS (16 sets, daily range): BP systolic 73–150; BP diastolic 35–79
[2020-04-11] MEDS ORDERED: PANTOPRAZOLE 40 MG TABLET.DR. PO SCH (07:30)
[2020-04-11] MEDS: INSULIN LISPRO 300 UNITS/3 ML VIAL. SQ SCH ×3 (08:00→17:54)
[2020-04-11] MEDS: glipiZIDE 5 MG TABLET PO SCH ×2 (08:39→17:50)
[2020-04-11] MEDS: CARVEDILOL 6.25 MG TABLET. PO SCH ×2 (08:41→17:00)
[2020-04-11] MEDS ORDERED: ISOSORBIDE MONONITRATE ER 30 MG TAB.ER.24H PO SCH (09:00)
[2020-04-11] MEDS ORDERED: ASPIRIN CHEWABLE 81 MG TABLET. PO SCH (09:00)
[2020-04-11] MEDS ORDERED: LINAGLIPTIN 5 MG TABLET PO SCH (09:00)
[2020-04-11] MEDS ORDERED: ATORVASTATIN CALCIUM 20 MG TABLET PO SCH (09:00)
[2020-04-11] MEDS ORDERED: PRASUGREL 10 MG TABLET. PO SCH (09:45)
--- NOTE | 2020-04-11 10:41 | CARD ---
MR#: [id number] Date of Study: 04/11/2020 Ordering Physician: VERÓNICA BRAVO, Referring Physician: VERÓNICA BRAVO, Tech: Kristin Lima APPROVED REPORT EXAM: Two-dimensional and M-mode echocardiogram with Doppler and color Doppler. Other Information Quality : AverageHR: 67bpm INDICATION Palpitations Cardiac Disease: CAD RISK FACTORS Hypertension Diabetes 2D DIMENSIONS Left Atrium(2D)3.7 (1.6-4.0cm)IVSd1.0 (0.7-1.1cm) Aortic Root(2D)2.8 (2.0-3.7cm)LVDd4.5 (3.9-5.9cm) LVOT Diameter1.8 (1.8-2.4cm)PWd1.0 (0.7-1.1cm) LVDs2.5 (2.5-4.0cm)FS (%) 43.0 % SV67.1 mlLVEF(%)74.3 (>50%) Aortic Valve AoV Peak Tulio.154.3cm/sAoV VTI38.4cm AO Peak GR.9.5mmHgLVOT Peak Tulio.99.8cm/s LVOT VTI 23.46cmAO Mean GR.6mmHg SURY (VMAX)1.96yz5UIC (VTI)1.55cm2 Mitral Valve MV E Dtqboqhp165.7cm/sMV DECEL VPJK863ua MV A Msjzrebl33.6cm/sMV TNC93ez E/A Ratio1.4MVA (PHT)3.63cm2 TDI E/Lateral E'17.5E/Medial E'21.1 Pulmonary Valve PV Peak Ikdbwlwq27.0cm/sPV Peak Grad.3mmHg Tricuspid Valve TR P. Haikknza911jj/sRAP [id number] TR Peak Gr.55lvWbVEGL96fmJe Pulmonary Vein S1 Foqeutve96.6cm/sD2 Mkmmthzl32.4cm/s PVa yqjfmcve490vbmr LEFT VENTRICLE The left ventricle is normal size. There is normal left ventricular wall thickness. The left ventricu lar systolic function is normal. The Ejection Fraction is 55-60%. There is normal LV segmental wall m otion. Transmitral Doppler flow pattern is Grade II-pseudonormal filling dynamics. RIGHT VENTRICLE The right ventricle is normal size. There is normal right ventricular wall thickness. The right ventr icular systolic function is normal. ATRIA The left atrium size is normal. The right atrium size is normal. The interatrial septum is intact wit h no evidence for an atrial septal defect or patent foramen ovale as noted on 2-D or Doppler imaging. AORTIC VALVE The aortic valve is normal in structure and function. Doppler and Color Flow revealed trace aortic re gurgitation. There is no significant aortic valvular stenosis. MITRAL VALVE The mitral valve is thickened but opens well. There is no evidence of mitral valve prolapse. There is no mitral valve stenosis. Doppler and Color-flow revealed mild mitral regurgitation. TRICUSPID VALVE The tricuspid valve is normal in structure and function. Doppler and Color Flow revealed trace tricus pid regurgitation with an estimated PAP of 31 mmHg. There is no tricuspid valve stenosis. PULMONIC VALVE The pulmonary valve is normal in structure and function. Doppler and Color Flow revealed trace pulmon ic valvular regurgitation. GREAT VESSELS The aortic root is normal in size. The ascending aorta is normal in size. The IVC is normal in size a nd collapses >50% with inspiration. PERICARDIAL EFFUSION There is no evidence of significant pericardial effusion. Critical Notification Critical Value: No <Conclusion> The left ventricular systolic function is normal. The Ejection Fraction is 55-60%. There is normal LV segmental wall motion. Mild mitral regurgitation. Trace tricuspid regurgitation with an estimated PAP of 31 mmHg. There is no evidence of significant pericardial effusion. Signed by : Erick Urena, Electronically Approved : 04/11/2020 10:41:32
--- NOTE | 2020-04-11 11:37 | PDOC ---
VERÓNICA BRAVO [employer] 04/11/20 1137: CARDIO Progress Notes Date and Time Date of Service 04/11/2020 Time of Evaluation 1020 Subjective Subjective: No Chest Pain, No shortness of breath, No Palpitations Vitals Vitals Vital Signs Date Time Temp Pulse Resp B/P (MAP) Pulse Ox O2 Delivery O2 Flow Rate FiO2 04/11/20 10:49 97.9 60 16 127/65 (85) 100 Room Air 97.9 04/10/20 14:19 2.0 Weight Weight [ ] Input and Output Intake and Output Intake and Output 04/11/20 07:00 Intake Total 1940 ml Balance 1940 ml Intake Oral 940 ml IV Total 1000 ml # Voids 4 Laboratory Labs Laboratory Tests Test 04/10/20 16:05 04/10/20 21:02 04/11/20 07:07 04/11/20 11:18 Glucose (Fingerstick) 187 mg/dL (70-99) 244 mg/dL (70-99) 116 mg/dL (70-99) 152 mg/dL (70-99) Physical Exam HEENT: Neck Supple W Full Motion Chest: Symmetric LUNGS: Clear to Auscultation Heart: S1S2, RRR (SR) Abdomen: Soft N/T Extremities: No Calf Tenderness Neurology: alert, oriented, follow commands Other Exams Right wrist arteriotomy site intact, no erythema or swelling, neurovascular status to right hand intact. Assessment Assessment 1. Chest pain: consistent with UA. S/P PCI/YAMILE to OM2 in an overlapping fashion with the previous distal stent. 2. MARY: treated with IVF. Prerenal. better 3. CAD: past stents. EF and WM nml per TTE 4. HTN: controlled 5. HLP 6. Ovarian CA: taking chemotherapy, reported no mets. 7. DM2: per PCP Recommendations 1. Baby ASA with effient. lipitor and coreg. 2. Hold metformin till tomorrow. BMP today 3. Consider jardiance rather than glipizde. 4. Cardiac rehab. Pt wishes to follow up with Dr. Lr as an outpt. Follow in May 16 at 1045 AM. 5. May DC from cardiac perspective. MAGGY LR MD 04/11/20 6683: CARDIO Progress Notes Plan Plan Patient seen and examined. Agree with above nurse practitioner note. Supportive care. Doing well status post PCI. VERÓNICA BRAVO APRN April 11, 2020 11:37 MAGGY LR MD April 11, 2020 17:19
[2020-04-11] MEDS ORDERED: ATOR40TA59 PO (11:39)
[2020-04-11] MEDS ORDERED: PRAS10TA9 PO (12:29)
--- NOTE | 2020-04-11 13:42 | PDOC3 ---
Discharge Summary Visit Information Date of Admission: April 10, 2020 Date of Discharge: April 11, 2020 Final Diagnosis Chest pain rule out ACS Hypertension essential History of diabetes mellitus type 2 insulin requiring Ovarian cancer status post chemotherapy and radiation currently on hold, she was scheduled to start her chemotherapy today and she is unsure of her current regimen. Paresthesias? Versus neuropathy? Chemotherapy related? Problems Medical Problems: (1) Acute renal insufficiency Status: Acute (2) Chest pain, rule out acute myocardial infarction Status: Acute (3) Elevated d-dimer Status: Acute (4) Hyperglycemia Status: Acute Brief Hospital Course Allergies Allergies Coded Allergies Type Severity Reaction Last Updated Verified Sulfa (Sulfonamide Antibiotics) Allergy Intermediate ITCHING,BURNING FEELING 04/10/20 No oxycodone Allergy Intermediate ITCHING,BURNING 04/10/20 Yes Vital Signs Vital Signs Date Time Temp Pulse Resp B/P (MAP) Pulse Ox O2 Delivery O2 Flow Rate FiO2 04/11/20 10:49 97.9 60 16 127/65 (85) 100 Room Air 97.9 04/10/20 14:19 2.0 Lab Results Laboratory Tests Test 04/10/20 00:03 04/10/20 00:22 04/10/20 02:25 04/10/20 04:45 Urine Collection Type Unknown Urine Color Yellow Urine Clarity Clear Urine pH 5.0 (<5.0-8.0) Urine Specific [place] >=1.030 (1.000-1.030) Urine Protein Negative mg/dL (NEG-TRACE) Urine Glucose (UA) >=1000 mg/dL (NEG) Urine Ketones (Stick) Negative mg/dL (NEG) Urine Blood Negative (NEG) Urine Nitrite Negative (NEG) Urine Bilirubin Negative (NEG) Urine Urobilinogen Dipstick 0.2 mg/dL (0.2 mg/dL) Urine Leukocyte Esterase Negative (NEG) Urine RBC 3-5 /HPF (0-2) Urine WBC 5-10 /HPF (0-4) Urine Squamous Epithelial Cells Few /LPF Urine Bacteria Moderate /HPF (0-FEW) White Blood Count 5.5 x10^3/uL (4.0-11.0) Red Blood Count 3.51 x10^6/uL (3.50-5.40) Hemoglobin 9.7 g/dL (12.0-15.5) Hematocrit 28.9 % (36.0-47.0) Mean Corpuscular Volume 82 fL (79-100) Mean Corpuscular Hemoglobin 28 pg (25-35) Mean Corpuscular Hemoglobin Concent 33 g/dL (31-37) Red Cell Distribution Width 18.6 % (11.5-14.5) Platelet Count 187 x10^3/uL (140-400) Neutrophils (%) (Auto) 92 % (31-73) Lymphocytes (%) (Auto) 5 % (24-48) Monocytes (%) (Auto) 2 % (0-9) Eosinophils (%) (Auto) 0 % (0-3) Basophils (%) (Auto) 1 % (0-3) Neutrophils # (Auto) 5.0 x10^3/uL (1.8-7.7) Lymphocytes # (Auto) 0.3 x10^3/uL (1.0-4.8) Monocytes # (Auto) 0.1 x10^3/uL (0.0-1.1) Eosinophils # (Auto) 0.0 x10^3/uL (0.0-0.7) Basophils # (Auto) 0.0 x10^3/uL (0.0-0.2) Segmented Neutrophils % 85 % (35-66) Band Neutrophils % 9 % (0-9) Lymphocytes % 4 % (24-48) Monocytes % 2 % (0-10) Nucleated Red Blood Cells 1 Toxic Vacuolation Slight Platelet Estimate Adequate (ADEQUATE) Anisocytosis Slight Prothrombin Time 13.2 SEC (11.7-14.0) Prothromb Time International Ratio 1.0 (0.8-1.1) Activated Partial Thromboplast Time 29 SEC (24-38) D-Dimer (Vanessa) 1.28 ug/mlFEU (0.00-0.50) Sodium Level 139 mmol/L (136-145) Potassium Level 5.3 mmol/L (3.5-5.1) Chloride Level 103 mmol/L (98-107) Carbon Dioxide Level 21 mmol/L (21-32) Anion Gap 15 (6-14) Blood Urea Nitrogen 30 mg/dL (7-20) Creatinine 1.5 mg/dL (0.6-1.0) Estimated GFR (Cockcroft-Gault) 41.8 BUN/Creatinine Ratio 20 (6-20) Glucose Level 441 mg/dL (70-99) Calcium Level 8.8 mg/dL (8.5-10.1) Magnesium Level 1.8 mg/dL (1.8-2.4) 1.9 mg/dL (1.8-2.4) Total Bilirubin 0.4 mg/dL (0.2-1.0) Aspartate Amino Transf (AST/SGOT) 22 U/L (15-37) Alanine Aminotransferase (ALT/SGPT) 19 U/L (14-59) Alkaline Phosphatase 110 U/L (46-116) Creatine Kinase 113 U/L (26-192) Creatine Kinase MB (Mass) < 0.5 ng/mL (0.0-3.6) Creatine Kinase MB Relative Index % (0-4) Troponin I Quantitative 0.037 ng/mL (0.000-0.055) 0.205 ng/mL (0.000-0.055) SR-Aup-R-Type Natriuretic Peptide 123 pg/mL (0-124) Total Protein 6.6 g/dL (6.4-8.2) Albumin 3.7 g/dL (3.4-5.0) Albumin/Globulin Ratio 1.3 (1.0-1.7) Lipase 115 U/L (73-393) Glucose (Fingerstick) 318 mg/dL (70-99) Triglycerides Level 58 mg/dL (0-150) Cholesterol Level 171 mg/dL (0-200) LDL Cholesterol, Calculated 108 mg/dL (0-100) VLDL Cholesterol, Calculated 12 mg/dL (0-40) Non-HDL Cholesterol Calculated 120 mg/dL (0-129) HDL Cholesterol 51 mg/dL (40-60) Cholesterol/HDL Ratio 3.4 Thyroid Stimulating Hormone (TSH) 0.189 uIU/mL (0.358-3.74) Test 04/10/20 07:13 04/10/20 07:27 04/10/20 16:05 04/10/20 21:02 Glucose (Fingerstick) 208 mg/dL (70-99) 187 mg/dL (70-99) 244 mg/dL (70-99) Sodium Level 144 mmol/L (136-145) Potassium Level 3.9 mmol/L (3.5-5.1) Chloride Level 108 mmol/L (98-107) Carbon Dioxide Level 23 mmol/L (21-32) Anion Gap 13 (6-14) Blood Urea Nitrogen 27 mg/dL (7-20) Creatinine 1.1 mg/dL (0.6-1.0) Estimated GFR (Cockcroft-Gault) 59.8 Glucose Level 231 mg/dL (70-99) Calcium Level 8.6 mg/dL (8.5-10.1) Troponin I Quantitative 0.281 ng/mL (0.000-0.055) Test 04/11/20 07:07 04/11/20 11:18 Glucose (Fingerstick) 116 mg/dL (70-99) 152 mg/dL (70-99) Laboratory Tests Test 04/10/20 16:05 04/10/20 21:02 04/11/20 07:07 04/11/20 11:18 Glucose (Fingerstick) 187 mg/dL (70-99) 244 mg/dL (70-99) 116 mg/dL (70-99) 152 mg/dL (70-99) Brief Hospital Course Ms. Jo is a 69 old admit for chest pain, r.o acs follow up Dr. Fermin 05/16 Discharge Information Condition at Discharge: Improved Follow Up: Weeks Disposition/Orders: D/C to Home Scheduled Aspirin (Aspirin) 81 Mg Tab.chew, 1 TAB PO DAILY, #30 Ref 3 (Reported) Entered as Reported by: MEHUL GUERRA on 07/12/141041 Last Action: Continued on 04/10/201848 by RENETTA KRAUSE Atorvastatin Calcium (Atorvastatin Calcium) 40 Mg Tablet, 40 MG PO QHS for HLP for 30 Days, #30 Ref 3 Prescribed by: VERÓNICA BRAVO on 04/11/20 1139 Carvedilol (Carvedilol ) 6.25 Mg Tablet, 1 TAB PO BID, #180 Ref 1 (Reported) Entered as Reported by: MEHUL GUERRA on 07/12/141041 Last Action: Continued on 04/10/201848 by RENETTA KRAUSE Glipizide (Glipizide) 5 Mg Tablet, 1 TAB PO BID, #60 Ref 3 (Reported) Entered as Reported by: MEHUL GUERRA on 07/12/141041 Last Action: Continued on 04/10/201848 by RENETTA KRAUSE Hydrocodone/Apap 10-325 ([place] 10-325 Tablet) 1 Each Tablet, 1-2 TAB PO Q4HRS, #40 (Reported) Entered as Reported by: MANJULA KIM on 06/11/16 152 Last Action: Continued on 04/10/201848 by RENETTA KRAUSE Metformin Hcl (Metformin Hcl) 500 Mg Tablet, 1 TAB PO BID, #60 Ref 3 (Reported) Entered as Reported by: MEHUL GUERRA on 07/12/14 1042 Omeprazole (Omeprazole) 20 Mg Capsule.dr, 1 CAP PO DAILY, #30 Ref 5 (Reported) Entered as Reported by: MEHUL GUERRA on 07/12/14 1042 Last Action: Converted on 04/10/201848 by RENETTA KRAUSE Ondansetron (Zofran Odt) 4 Mg Tab.rapdis, 1 TAB SL Q8HRS, #10 (Reported) Entered as Reported by: MANJULA KIM on 06/11/16 1527 Last Action: Continued on 04/10/201848 by RENETTA KRAUSE Prasugrel Hcl (Effient) 10 Mg Tablet, 10 MG PO DAILYWBKFT for cardiac, #30 Ref 2 Prescribed by: KIRILL BARRAGAN on 04/11/20 1229 Sitagliptin Phosphate (Januvia) 100 Mg Tablet, 1 TAB PO DAILY, #30 Ref 5 (Reported) Entered as Reported by: MEHUL GUERRA on 07/12/14 104 Last Action: Converted on 04/10/201848 by RENETTA KRAUSE Miscellaneous Medications Isosorbide Dinitrate (Isordil) 40 Mg Tablet, 40 MG PO, (Reported) Entered as Reported by: PATRICK PIERCE on 06/11/16 1311 Discontinued Medications Atorvastatin Calcium (Atorvastatin Calcium) 20 Mg Tablet, 20 MG PO DAILY for FOR CHOLESTEROL, #30 Ref 0 (Reported) Entered as Reported by: PATRICK PIERCE on 06/11/16 1306 Last Action: Continued on 04/10/201848 by KIRILL ZAMORA MD April 11, 2020 13:42
[2020-04-11 13:47] LABS: CALCIUM 8.2 mg/dL (8.5-10.1); CREATININE 1.1 mg/dL (0.6-1.0); GFR 59.8; POTASSIUM 3.6 mmol/L (3.5-5.1)
[2020-04-11] MEDS ORDERED: IV NORMAL SALINE 500ML BAG 250 ML IV ONE ×3 (14:15→15:15)
--- NOTE | 2020-04-11 14:15 | NUR ---
Patient hypotensive at 73/35. Dr. Barcenas notified & fluid bolus ordered. Spoke with Kishor Tohmas NP as well & medication adjustment was made. Ok to discharge is BP improves. Will continue to monitor.
--- NOTE | 2020-04-11 18:35 | NUR ---
Discharge Note: YOLANDE QUIÑONES [address] [place] [address] Discharge instructions and discharge home medications reviewed with Patient and a copy given. All questions have been answered and understanding verbalized. The following instructions and handouts were given: discharge instructions, prescription, CAD info, HTN info, hypotension info, CP info, effient & lipitor info, post cath instructions, follow ups Discontinued lines and drains: Peripheral IV intact. Patient discharged to Home or Self Care with Family Member via Wheelchair at 1835. BP improved.
== END 2020-04-11 18:35 | disposition home or self-care (01) ==
LOC: ER 23:52 → 6 SOUTH 04-10 01:30 → 2 NORTH 04-10 12:23
PROVIDERS: ADMIT Internal Medicine; ATTEND Internal Medicine
DX: R07.9 Chest pain, unspecified (principal); N28.9 Disorder of kidney and ureter, unspecified; E11.65 Type 2 diabetes mellitus with hyperglycemia; I25.10 Atherosclerotic heart disease of native coronary artery without angina pectoris; I10 Essential (primary) hypertension; E78.5 Hyperlipidemia, unspecified; I25.2 Old myocardial infarction; C56.9 Malignant neoplasm of unspecified ovary; N17.9 Acute kidney failure, unspecified; Z79.4 Long term (current) use of insulin; Z90.710 Acquired absence of both cervix and uterus; Z92.3 Personal history of irradiation; Z95.5 Presence of coronary angioplasty implant and graft
CPT/HCPCS: 36415; 71045; 78580; 80048; 80053; 80061; 81001; 82553; 82962; 83690; 83735; 83880; 84443; 84484; 85007; 85025; 85347; 85379; 85610; 85730; 87086; 87186; 92928; 93005; 93306; 93454; 96361; 96374; 96375; 96376; 99285; A9540; C1725; C1760; C1769; C1874; C1887; C1892; G0269; G0378; J1644; J1815; J2250; J3010; J3490; J7030; J7040; Q9967; 99152; 99153; G0379; C1713; C1771

== ENCOUNTER → 2020-07-27 | Outpatient (CLI) | payer MEDICARE, MEDICAID ==
[2020-04-11 17:13] VITALS: BP 115/59
[~2020-07-27] MED LIST changes: +ATOR40TA59 PO; +PRAS10TA9 PO
--- NOTE | 2020-07-27 15:08 | KCIC ---
Bone mineral density exam History: Hysterectomy, takes calcium supplement, diabetes Comparison: None Findings: Bone mineral density examination utilizing DEXA was performed. Left hip bone mineral density of 0.807 g/cm2 corresponds with a T score -1.1, Z score -0.3. The bone mineral density of the lumbar spine was 0.805 g/cm2 which corresponds with a T-score of -2.2, Z score -0.9. By [employer] on Osteoporosis criteria, a T score of 0 to-1 SD is considered to be within normal limits. A T score of -1 to -2.5 SD is considered osteopenia. A T score less than -2.5 SD is considered osteoporosis Impression: 1. There is osteopenia of the lumbar spine and the left hip. Electronically signed by: Ted Haro MD (07/27/2020 3:05 PM) [id number]
== END | disposition home or self-care (01) ==
LOC: KCIC DEXA 11:15
PROVIDERS: ATTEND Nurse Practitioner Family
DX: Z13.820 Encounter for screening for osteoporosis (principal); M85.88 Other specified disorders of bone density and structure, other site; Z78.0 Asymptomatic menopausal state
CPT/HCPCS: 77080

== ENCOUNTER → 2020-08-13 | Outpatient (CLI) | payer MEDICARE, MEDICAID ==
[2020-04-11 17:13] VITALS: BP 115/59
--- NOTE | 2020-08-13 14:19 | CARD ---
MR#: [id number] Date of Study: 08/13/2020 Ordering Physician: MAGGY LR, Referring Physician: MAGGY LR, Tech: Elzbieta Alaniz [facility] APPROVED REPORT EXAM: Two-dimensional and M-mode echocardiogram with Doppler and color Doppler. Other Information Quality : Good INDICATION Cardiac Disease: CAD 2D DIMENSIONS RVDd2.7 (2.9-3.5cm)Left Atrium(2D)3.2 (1.6-4.0cm) IVSd0.9 (0.7-1.1cm)Aortic Root(2D)2.7 (2.0-3.7cm) LVDd4.0 (3.9-5.9cm)LVOT Diameter2.0 (1.8-2.4cm) PWd0.9 (0.7-1.1cm)LVDs2.6 (2.5-4.0cm) FS (%) 30.0 %SV45.0 ml LVEF(%)60.0 (>50%) Aortic Valve AoV Peak Tulio.161.3cm/sAoV VTI28.6cm AO Peak GR.10.4mmHgLVOT Peak Tulio.97.7cm/s AO Mean GR.5mmHgAVA (VMAX)1.87cm2 SURY (VTI)2.38us6AV P 1/2 [id number] Mitral Valve MV E Micbgpsm17.3cm/sMV DECEL [id number] MV A Shwwiplv053.1cm/sE/A Ratio0.6 Pulmonary Vein S1 Iqkreruk59.0cm/sD2 Xzkfrbqp91.8cm/s LEFT VENTRICLE The left ventricle is normal size. There is borderline concentric left ventricular hypertrophy. The l eft ventricular systolic function is normal and the ejection fraction is within normal range. The Eje ction Fraction is 55-60%. There is normal LV segmental wall motion. Transmitral Doppler flow pattern is Grade I-abnormal relaxation pattern. RIGHT VENTRICLE The right ventricle is normal size. The right ventricular systolic function is normal. ATRIA The left atrium size is normal. The right atrium size is normal. The interatrial septum is intact wit h no evidence for an atrial septal defect or patent foramen ovale as noted on 2-D or Doppler imaging. AORTIC VALVE The aortic valve is calcified but opens well. Doppler and Color Flow revealed trace aortic regurgitat ion. There is no significant aortic valvular stenosis. MITRAL VALVE The mitral valve is calcified but opens well. Mitral annular calcification is mild. There is no evide nce of mitral valve prolapse. There is no mitral valve stenosis. Doppler and Color Flow revealed no m itral valve regurgitation noted. TRICUSPID VALVE The tricuspid valve is normal in structure and function. Doppler and Color Flow revealed trace tricus pid regurgitation. There is no tricuspid valve stenosis. PULMONIC VALVE The pulmonary valve is normal in structure and function. Doppler and Color Flow revealed trace to mil d pulmonic valvular regurgitation. There is no pulmonic valvular stenosis. GREAT VESSELS The aortic root is normal in size. The ascending aorta is normal in size. The IVC is normal in size a nd collapses >50% with inspiration. PERICARDIAL EFFUSION There is no evidence of significant pericardial effusion. Critical Notification Critical Value: No <Conclusion> The left ventricle is normal size. The left ventricular systolic function is normal and the ejection fraction is within normal range. The Ejection Fraction is 55-60%. There is borderline concentric left ventricular hypertrophy. Doppler and Color Flow revealed trace aortic regurgitation. There is no significant aortic valvular stenosis. Doppler and Color Flow revealed no mitral valve regurgitation noted. Doppler and Color Flow revealed trace tricuspid regurgitation. Signed by : Dao Adame MD Electronically Approved : 08/13/2020 14:19:15
== END | disposition home or self-care (01) ==
LOC: ECHO 10:02
PROVIDERS: ATTEND Internal Medicine Cardiovascular Disease
DX: I08.8 Other rheumatic multiple valve diseases (principal); I25.10 Atherosclerotic heart disease of native coronary artery without angina pectoris
CPT/HCPCS: 93306

== ENCOUNTER → 2020-08-24 | Outpatient (CLI) | payer MEDICARE, MEDICAID ==
[2020-04-11 17:13] VITALS: BP 115/59
[~2020-08-24] MED LIST changes: +EMPA25TA PO; +GABA300C18 PO; +ISOS30TA19 PO
== END | disposition home or self-care (01) ==
LOC: LAB 10:20
PROVIDERS: ATTEND Orthopaedic Surgery Sports Medicine
DX: Z01.812 Encounter for preprocedural laboratory examination (principal); Z86.010 Personal history of colon polyps; Z20.828 Contact with and (suspected) exposure to other viral communicable diseases
CPT/HCPCS: U0003-CS

== ENCOUNTER → 2020-08-27 | Day surgery (SDC) | payer MEDICARE, MEDICAID ==
[~2020-08-27] MED LIST changes: +IV RINGERS,LACTATED 1000ML 1,000 ML IV SCH; +PROPOFOL 10 MG/ML (20ML) VIAL. IV ONE
--- NOTE | 2020-08-27 15:02 | PDOC4 ---
PROCEDURE Procedure Colonoscopy with biopsy Indication: History of colon polyps Meds: per anesthesia Findings: ANDREA normal. --'Scope advanced to cecum. Diverticula in sigmoid with angulation/spasm. 4mm polyp, mid-transverse biopsied off. Internal hemorrhoids on retroflex. Harsh. well. IMP: diverticulosis Small polyp Internal hemorrhoids. REC: resume home meds, diet. await path. F/u with me in 2 weeks. Repeat exam in 5 years. BRII VERGARA MD Aug 27, 2020 15:02
[2020-08-27 15:30] VITALS: BP 183/84
--- NOTE | 2020-08-29 15:08 | PATHOLOGY ---
[facility] Accession Number: [id number] . 01 Material submitted: . colon - MID TRANSVERSE COLON POLYP. Modifiers: mid, transverse . 01 Clinical history: . HX COLON POLYPS . 02 Diagnosis: Colon biopsies, mid transverse colon polyp: - Tubular adenoma. (JPM:alphonso; 08/29/2020) S 08/29/2020 0828 Local . 02 Comment: There is no high grade dysplasia or evidence of malignancy. (JPM:alphonso;08/29/2020) . 02 Electronically signed: . Rene Perez MD, Pathologist NPI- [id number] . 01 Gross description: . The specimen is received in formalin, labeled "Marija Deysi, mid transverse colon polyp". Received are two segments of pale srinivasan soft tissue measuring 0.3 cm each in maximum dimensions. The specimen is submitted entirely in cassette A1. ([facility]; 08/28/2020) QAC/QA 08/28/2020 1555 Local . 02 Pathologist provided ICD-10: D12.3 . 02 CPT . 431691 Specimen Comment: A courtesy copy of this report has been sent to [phone], [phone] Specimen Comment: [id number] Specimen Comment: Report sent to / DR ESPINAL Performed at: 01 [facility] [address] [place] [address], [place] [id number] MD Yasir Martins MD Phone: [phone] Performed at: 02 [facility] [address] [place], [place] [id number] MD Rene Perez MD Phone: [phone]
== END | disposition home or self-care (01) ==
LOC: ENDOS 13:24
PROVIDERS: ATTEND Internal Medicine Gastroenterology
DX: Z12.11 Encounter for screening for malignant neoplasm of colon (principal); K64.8 Other hemorrhoids; D12.3 Benign neoplasm of transverse colon; I10 Essential (primary) hypertension; E11.9 Type 2 diabetes mellitus without complications; Z86.010 Personal history of colon polyps; Z88.2 Allergy status to sulfonamides; Z88.5 Allergy status to narcotic agent; Z79.899 Other long term (current) drug therapy
CPT/HCPCS: 45380; 88305; J2704

== ENCOUNTER → 2020-09-12 | Outpatient (CLI) | payer MEDICARE, MEDICAID ==
[2020-08-27 15:30] VITALS: BP 183/84
[~2020-09-12] MED LIST changes: -IV RINGERS,LACTATED 1000ML 1,000 ML IV SCH; -PROPOFOL 10 MG/ML (20ML) VIAL. IV ONE
--- NOTE | 2020-09-12 11:38 | RAD ---
HIP LEFT 2V WITH PELVIS 09/12/2020 12:00 AM INDICATION: Left hip pain COMPARISON: None available. TECHNIQUE: 2 views of the left hip are provided. FINDINGS/ IMPRESSION: 1. No acute fracture or dislocation. Joint spaces are maintained. Superior and inferior pubic rami are intact. No significant soft tissue abnormality. No lytic or blastic osseous lesion is identified. Electronically signed by: Oxana Preston MD (09/12/2020 11:35 AM) [id number]
== END ==
LOC: RAD 09:55
PROVIDERS: ATTEND Family Medicine
DX: M25.552 Pain in left hip (principal)
CPT/HCPCS: 73502

== ENCOUNTER → 2020-09-24 | Outpatient (CLI) | payer MEDICARE, MEDICAID ==
[2020-08-27 15:30] VITALS: BP 183/84
--- NOTE | 2020-09-24 13:08 | KCIC ---
EXAM: MRI LEFT HIP DATE: 09/24/2020 11:00 AM CLINICAL INDICATION: Reason: PAIN IN LEFT HIP / Spl. Instructions: / History: Left hip pain down left leg. Pt fell in July. COMPARISON: Radiograph 09/12/2020 TECHNIQUE: Multiplanar, multisequence MR imaging of the left hip was performed without IV contrast. FINDINGS: No significant left hip joint effusion. Evaluation for labral tear limited on this nonarthrographic study. Within these constraints no discrete labral tear is seen. Mild chondral thinning superiorly. There is suggestion of marrow edema within the left sacrum, incompletely assessed on the large jeryx-wd-flso images suspicious for sacral insufficiency type fracture. In addition there is moderate edema within the left gluteus taina muscle belly near the iliac attachment. There is also mild edema within the left gluteus medias and minimus muscle bellies, iliopsoas muscle bellies. Tendinous attachments of the gluteus medius/minimus and iliopsoas are intact. Mild increased signal and thickening of the hamstring tendinous attachment with the left initial tuberosity consistent with tendinosis. On this large [id number] evaluation the pelvis, no pelvic mass, lymphadenopathy or ascites. Trace edema about the bladder may be physiologic or related to cystitis. IMPRESSION: 1. Mild edema about the left sacrum is suspicious for nondisplaced sacral insufficiency fracture although only partially included in the kzzdm-ip-obtc on select series. This can be correlated with patient's symptoms and if further imaging is required, additional MR imaging of the sacrum can be performed. 2. Edema within the gluteus musculature as well as pneumocephalus likely from low-grade strain. 3. Edema about the bladder may be seen with cystitis or physiologic for this patient and can be correlated with urinalysis. 4. Mild left hip joint degenerative changes with chondral thinning superiorly. Electronically signed by: Adriel Sorenson MD (09/24/2020 1:05 PM) TAYLOR
== END ==
LOC: KCIC MRI 10:50
PROVIDERS: ATTEND Nurse Practitioner Family
DX: M16.12 Unilateral primary osteoarthritis, left hip (principal); G93.89 Other specified disorders of brain
CPT/HCPCS: 73721

== ENCOUNTER → 2021-01-07 | Outpatient (CLI) | payer MEDICARE ==
[2020-08-27 15:30] VITALS: BP 183/84
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
== END ==
LOC: KCIC 10:58
PROVIDERS: ATTEND Family Medicine
DX: M25.812 Other specified joint disorders, left shoulder (principal); I70.0 Atherosclerosis of aorta
CPT/HCPCS: 73030

== ENCOUNTER → 2021-02-12 | Outpatient (CLI) | payer MEDICARE, MEDICAID ==
[2020-08-27 15:30] VITALS: BP 183/84
--- NOTE | 2021-02-12 15:46 | RAD ---
STUDY: MRI of the left shoulder without contrast INDICATION: Acute onset left shoulder pain. COMPARISON: Left shoulder radiographs 01/07/2021 TECHNIQUE: Multiplanar MR imaging of the left shoulder performed without the use of intravenous or in tra-articular contrast. FINDINGS: AC joint: Moderate hypertrophic AC joint arthrosis. Capsular hypertrophy and millimetric infraclavicu lar spurring with trace mass effect on the subjacent supraspinatus myotendinous junction. Very mild s ubacromial subdeltoid bursitis. Rotator cuff: Supraspinatus and infraspinatus tendinosis. Small, intermediate grade tear of the poste rior supraspinatus at the footprint involving around 40 percent tendon cross-sectional thickness and measuring approximately 3.5 mm mediolateral by 3.5 mm AP. No high-grade or full-thickness tear. Maint ained rotator cuff muscular bulk. Labrum: Degenerative SLAP-type tear appearing to be confined to the superior labrum, images 9 and 10 series 8. Long head biceps tendon: Intra-articular long head biceps tendinosis extending to the groove entrance . Cartilage: No discrete chondral defect. Bones: No acute fracture or focally aggressive marrow signal abnormality. Miscellaneous: Normal volume joint fluid. No axillary adenopathy. Impression: 1. Supraspinatus and infraspinatus tendinosis. Small intermediate grade tear of the posterior supras pinatus at the footprint measuring approximately 3.5 x 3.5 mm and involving around 40 percent tendon cross-sectional thickness. Muscular bulk is maintained. 2. Degenerative SLAP-type tear confined to the superior labrum. 3. Intra-articular long head biceps tendinosis extending to the groove entrance. 4. Moderate hypertrophic AC joint arthrosis. Electronically signed by: JUDIT HAIR MD (02/12/2021 3:43 PM) [id number]
== END ==
LOC: MRI 09:46
PROVIDERS: ATTEND Nurse Practitioner Family
DX: M19.012 Primary osteoarthritis, left shoulder (principal); M77.8 Other enthesopathies, not elsewhere classified
CPT/HCPCS: 73221

== ENCOUNTER → 2021-04-30 | Outpatient (CLI) | payer MEDICARE, MEDICAID ==
[2020-08-27 15:30] VITALS: BP 183/84
--- NOTE | 2021-04-30 10:53 | RAD ---
STUDY: MRI of the lumbar spine without contrast INDICATION: Lumbar and sacral osteoarthritis. COMPARISON: None. TECHNIQUE: Multiplanar MR imaging of the lumbar spine performed without the use of intravenous contra st. FINDINGS: Normal signal and configuration of the conus medullaris which terminates at approximately L1-L2. With in normal limits distribution of the cauda equina nerve roots. Lumbar lordosis is maintained. Heterogeneous marrow signal mainly from T11 through L3 and mildly at t he upper aspect of L4 but without aggressive features. Schmorl's node at the inferior endplate of T12 . No fracture. Millimetric grade 1 anterolisthesis of L5 on S1. Lower lumbar disc desiccation. Minima l disc space height loss at L5-S1. Mild appearing arthrosis at the left more so than right sacroiliac joints at their upper aspect. T11-T12 through L1-L2: Only evaluated on the sagittal sequences. Patent central canal and neural fora shahriar. L2-L3: No significant disc bulge or facet arthrosis. Patent central canal and neural foramina. L3-L4: No significant disc bulge or facet arthrosis. Patent central canal and neural foramina. L4-L5: Minimal disc bulge. Mild facet arthrosis and ligamentum flavum hypertrophy. Patent central can al with a mid sagittal dimension of 11 mm. No significant neural foraminal stenosis. L5-S1: Grade 1 anterolisthesis with disc uncovering. Mild superimposed disc bulge. Moderate facet art hrosis slightly greater on the right. Patent central canal. Mild right and moderate left neural desiree inal stenosis. IMPRESSION: Spondylosis at L5-S1 more so than L4-L5. Moderate facet arthrosis at L5-S1 results in grade 1 anterol isthesis of L5 on S1. The central canal is patent throughout the lumbar and lower thoracic spine. Mil d right and moderate left neural foraminal stenosis at L5-S1. Electronically signed by: JUDIT HAIR MD (04/30/2021 10:51 AM) [facility]
== END ==
LOC: MRI 09:48
PROVIDERS: ATTEND Nurse Practitioner Family
DX: M47.817 Spondylosis without myelopathy or radiculopathy, lumbosacral region (principal); M43.17 Spondylolisthesis, lumbosacral region
CPT/HCPCS: 72148

== ENCOUNTER → 2021-05-28 | Outpatient (CLI) | payer MEDICARE, MEDICAID ==
[2020-08-27 15:30] VITALS: BP 183/84
[~2021-05-28] MED LIST changes: +CARV12.511 PO; +GLIM4TAB8 PO; +OMEP40CA7 PO
== END ==
LOC: LAB 10:17
PROVIDERS: ATTEND Orthopaedic Surgery
DX: Z01.812 Encounter for preprocedural laboratory examination (principal); S46.012A Strain of muscle(s) and tendon(s) of the rotator cuff of left shoulder, initial encounter; G56.02 Carpal tunnel syndrome, left upper limb; Z20.822 Contact with and (suspected) exposure to COVID-19; X58.XXXA Exposure to other specified factors, initial encounter; Y92.89 Other specified places as the place of occurrence of the external cause; Y93.89 Activity, other specified; Y99.8 Other external cause status
CPT/HCPCS: U0003; U0005

== ENCOUNTER 2021-05-31 07:47 | Day surgery (SDC) | payer MEDICARE, MEDICAID ==
[~2021-05-31] VITALS: Ht 160 cm; Wt 59.0 kg
[~2021-05-31 07:47] MED LIST changes: +IV RINGERS,LACTATED 1000ML 1,000 ML IV SCH; +PROCHLORPERAZINE 10 MG/2 ML VIAL. IVP PRN; +fentaNYL PF VIAL 100 MCG/2 ML VIAL IVP PRN
[2021-05-31] MEDS ORDERED: INSULIN LISPRO 100 UNIT/ML 3ML VIAL for OP,RR ONLY. SQ PRN (08:15)
[2021-05-31 08:22] VITALS: BP 112/60
[2021-05-31] MEDS ORDERED: ROPIVacaine 0.5% PF 20 ML VIAL. ONE (09:14)
[2021-05-31] MEDS ORDERED: MIDAZOLAM HCL/PF 2 MG/2 ML VIAL. ONE (09:14)
[2021-05-31] MEDS ORDERED: LIDOCAINE 2% PF 5 ML VIAL. ONE (10:11)
[2021-05-31] MEDS ORDERED: PROPOFOL 10 MG/ML (20ML) VIAL. IV ONE (10:11)
[2021-05-31] MEDS ORDERED: KETOROLAC 30 MG/ML VIAL. ONE (10:11)
[2021-05-31] MEDS ORDERED: DEXAMETHASONE SOD PHOS 4 MG/ML VIAL ONE (10:11)
[2021-05-31] MEDS ORDERED: ONDANSETRON PF 4 MG/2 ML VIAL. ONE (10:11)
[2021-05-31] MEDS ORDERED: SEVOFLURANE > 120 MINUTES. IH ONE (10:11)
[2021-05-31] MEDS ORDERED: EPINEPHrine VIAL 30 MG/30 ML VIAL ONE (10:49)
[2021-05-31] MEDS ORDERED: FAMOTIDINE 20 MG/2 ML VIAL ONE (11:02)
[2021-05-31] MEDS ORDERED: PHENYLEPHRINE in 0.9% NACL PF 1 MG/10 ML SYRINGE. IV ONE (11:19)
[2021-05-31] MEDS ORDERED: PHENYLEPHRINE 10 MG/ML VIAL. ONE (11:46)
--- NOTE | 2021-05-31 13:13 | DISCH ---
DISCHARGE INSTRUCTIONS Condition on Discharge Condition on Discharge: Stable Activity After Discharge Activity Instructions for Disc: Other, see below (May use hand for fine motor use with elbow at side. No lifting elbow away from the body due to rotator cuff repair, may hang the arm down to the side like a pendulum but immobilizer must be worn at night or asleep) Bathing Instructions: Shower-keep dressing dry, No Tub Bath until see Lifting Instructions after Dis: No heavy lifting, No pulling or pushing Weight Bearing Status after Di: Non weight bearing Diet after Discharge Diet after Discharge: Cardiac, Diabetic No Calorie Level Wound Incision Care Wound/Incision Care: Ice to area for comfort, Change dressing (Remove shoulder dressing in 2 days may then shower no soaking until sutures removed, keep wrist dressing intact unless soiled, otherwise may remove and place a light dressing for protection) Community/Resources/Services Services at Discharge: PT EVALUATE & TREAT (Passive range of motion left shoulder only until follow-up visit) Contacting the after DC Call your doctor for: Concerns you may have Follow-Up Follow up with: Dr. Mancilla or Margi 10 days LOGAN MANCILLA MD May 31, 2021 13:13
--- NOTE | 2021-05-31 13:22 | PDOC4 ---
Operative Note Operative Note Date of surgery: 05/31/2021 Preoperative diagnosis: Left shoulder rotator cuff tear and carpal tunnel syndrome Postoperative diagnosis: Same with type I SLAP tear a full-thickness supraspinatus tear and moderate median nerve compression at the carpal tunnel Operative procedure: Left shoulder arthroscopy debridement of SLAP tear arthroscopic rotator cuff repair and left carpal tunnel release Surgeon: Charo Assist: Nicolas fleming assist Anesthesia: General plus interscalene block Estimated blood loss: 10 cc Complications: None Operative indications: Please see my clinic and dictated preoperative history and physical for detailed operative indications and note that we had covered that I anticipate rotator cuff repair and addressing of any other pathology as indicated as well as planned carpal tunnel release on the left upper extremity. We covered risks benefits postoperative course including the possibility of continued pain infection nerve or blood vessel damage medical or other anesthetic complications among others and she agrees to proceed with surgical evaluation and treatment. Operative text: Patient was identified procedure verified patient placed in the supine position on the operating table. After adequate amounts of general anesthesia were administered plus a pre-existing scalene block she was placed in the decubitus position left side up all bony prominences were well-padded she had full range of motion and no instability. The left shoulder was then prepped and draped in standard sterile fashion placed in the arthroscopic arm dasilva with a total of 10 pounds of traction. After timeout was performed patient procedure identified and verified a standard posterior portal was established an anterior portal established using spinal needle localization and the shoulder joint was systematically examined. She was found to have extensive superior labral fraying without detachment basically consisting of a type I SLAP tear which was debrided back to stable tissue with the arthroscopic shaver and bipolar electrocautery. There was no peelback lesion present nor was there compromise of the biceps anchor had no subluxation or instability. Subscapularis was intact but she had a very high-grade distal supraspinatus tear which was probed with a spinal needle and noted to have only a very wispy remaining insertion. Capsuloligamentous structures were noted to be in good condition as was the glenohumeral joint bare area of the humerus was normal in appearance. Subacromial space was then entered she had significant bursal irritation which was debrided for visualization and she was noted to have a 95% through tear of the distal supraspinatus which was completed and the rotator cuff footprint debrided back to bleeding bony tissue. A single 2.9 juggernaut suture was placed at the medial row and sutures were placed in a simple fashion and lateral row repair was completed with a FireDrillMe 4.5 peek anchor which gave excellent apposition in all degrees of internal/external rotation. Joint was drained of arthroscopic fluid portals closed with nylon suture sterile dressings were applied. Attention was then turned to the carpal tunnel. The hand had been prepped including her fingers and was prepped again with ChloraPrep and a longitudinal incision was made just distal to the distal wrist crease dissection carried out down to the transverse carpal ligament which was divided under direct visualization and divided completely proximally and distally verified both by visualization and palpation. Median nerve was noted to have moderate to severe compression and no synovitis noted in the carpal tunnel nor compromise of the flexor tendons. Closure was accomplished with nylon suture in a vertical mattress fashion followed by sterile dressings on the wrist and she was returned to recovery room in stable condition having tolerated procedure well. Nicolas fleming assist was present for the procedure assisted in patient positioning prepping draping assist with instruments closure and dressings LOGAN SILVA MD May 31, 2021 13:22
[2021-05-31] MEDS ORDERED: hydrALAZINE 20 MG/ML VIAL. ONE (13:28)
[2021-05-31] MEDS ORDERED: hydrALAZINE 20 MG/ML VIAL. IVP ONE (13:30)
[2021-05-31 14:05] VITALS: BP 142/61
== END 2021-05-31 15:10 | disposition home or self-care (01) ==
LOC: SURG 07:47
PROVIDERS: ATTEND Orthopaedic Surgery
DX: M75.102 Unspecified rotator cuff tear or rupture of left shoulder, not specified as traumatic (principal); S43.432A Superior glenoid labrum lesion of left shoulder, initial encounter; G56.02 Carpal tunnel syndrome, left upper limb; I25.10 Atherosclerotic heart disease of native coronary artery without angina pectoris; I10 Essential (primary) hypertension; E78.00 Pure hypercholesterolemia, unspecified; K21.9 Gastro-esophageal reflux disease without esophagitis; M19.90 Unspecified osteoarthritis, unspecified site; E11.9 Type 2 diabetes mellitus without complications; F41.9 Anxiety disorder, unspecified; F32.9 Major depressive disorder, single episode, unspecified; Z90.710 Acquired absence of both cervix and uterus; Z98.890 Other specified postprocedural states; Z79.899 Other long term (current) drug therapy; Z79.84 Long term (current) use of oral hypoglycemic drugs; Z72.89 Other problems related to lifestyle; Z88.5 Allergy status to narcotic agent; Z88.8 Allergy status to other drugs, medicaments and biological substances; Z88.2 Allergy status to sulfonamides; Z88.6 Allergy status to analgesic agent; X58.XXXA Exposure to other specified factors, initial encounter; Y93.89 Activity, other specified; Y92.89 Other specified places as the place of occurrence of the external cause; Y99.8 Other external cause status
CPT/HCPCS: 29827; 64415; 64721; 82962; A4565; A4930; A6402; C1713; J0171; J0360; J0690; J1100; J1885; J2250; J2370; J2405; J2704; J2795; J3490; A4657; A6452

== ENCOUNTER → 2021-07-03 | Outpatient (CLI) | payer MEDICARE, MEDICAID ==
[~2021-07-03] MED LIST changes: -IV RINGERS,LACTATED 1000ML 1,000 ML IV SCH; -PROCHLORPERAZINE 10 MG/2 ML VIAL. IVP PRN; -fentaNYL PF VIAL 100 MCG/2 ML VIAL IVP PRN
[2021-07-03 22:11] LABS: CA 125 10.1 U/mL (0.0-38.1)
[2021-07-04 13:14] LABS: IMMUNOGLOBULIN A 78 mg/dL (87-352); IMMUNOGLOBULIN G 718 mg/dL (586-1602); IMMUNOGLOBULIN M 58 mg/dL (26-217); KAPPA FREE 25.5 mg/L (3.3-19.4); KAPPA LAMBDA RATIO 1.42 (0.26-1.65)
[2021-07-04 14:15] LABS: ALBUM 3.5 g/dL (2.9-4.4); ALPHA 1 0.2 g/dL (0.0-0.4); ALPHA 2 0.6 g/dL (0.4-1.0); BETA 0.9 g/dL (0.7-1.3); GAMMA 0.6 g/dL (0.4-1.8); PROTEIN TOTAL 5.9 g/dL (6.0-8.5); SPEP AG RATIO 1.5 (0.7-1.7)
== END ==
LOC: ONCLAB 11:58
PROVIDERS: ATTEND Internal Medicine Hematology & Oncology
DX: C56.9 Malignant neoplasm of unspecified ovary (principal); D64.9 Anemia, unspecified
CPT/HCPCS: 82525; 82607; 82668; 82728; 82746; 82784; 83010; 83520; 83540; 83550; 84165; 86304; 86334

== ENCOUNTER → 2021-11-06 | Outpatient (CLI) | payer MEDICARE, MEDICAID ==
[2021-11-06 10:41] LABS: BASO % 1 % (0-3); EOS % 1 % (0-3); HEMATOCRIT 35.2 % (36.0-47.0); HEMOGLOBIN 11.5 g/dL (12.0-15.5); LYMPH # 0.9 x10^3/uL (1.0-4.8); LYMPH % 24 % (24-48); MEAN CORPUSCULAR HEMOGLOBIN 27 pg (25-35); MEAN CORPUSCULAR HGB CONC 33 g/dL (31-37); MEAN CORPUSCULAR VOLUME 81 fL (79-100); MONO # 0.6 x10^3/uL (0.0-1.1); MONO % 16 % (0-9); NEUT # 2.2 x10^3/uL (1.8-7.7); NEUT % 59 % (31-73); PLATELET COUNT 207 x10^3/uL (140-400); RED BLOOD COUNT 4.33 x10^6/uL (3.50-5.40); RED CELL DISTRIBUTION WIDTH 14.9 % (11.5-14.5); WHITE BLOOD COUNT 3.7 x10^3/uL (4.0-11.0)
== END ==
LOC: ONCLAB 10:07
PROVIDERS: ATTEND Internal Medicine Hematology & Oncology
DX: D64.9 Anemia, unspecified (principal)
CPT/HCPCS: 36415; 82728; 83540; 83550; 85025

== ENCOUNTER → 2021-12-31 | Outpatient (CLI) | payer OTHER, MEDICAID ==
[~2021-12-31] MED LIST changes: +REGADENOSON 0.4 MG/5 ML DISP.SYRIN. IV ONE
--- NOTE | 2021-12-31 17:27 | CARD ---
MR#: [id number] Date of Study: 12/31/2021 Ordering Physician: MAGGY LR, Referring Physician: MAGGY LR, Tech: Arabella Marinelli [facility] APPROVED REPORT EXAM: Two-dimensional and M-mode echocardiogram with Doppler and color Doppler. Other Information Quality : ExcellentHR: 63bpm Rhythm : NSR INDICATION Cardiac Disease: CAD RISK FACTORS Hypertension Hyperlipidemia 2D DIMENSIONS RVDd2.7 (2.9-3.5cm)Left Atrium(2D)3.3 (1.6-4.0cm) IVSd1.0 (0.7-1.1cm)Aortic Root(2D)3.0 (2.0-3.7cm) LVDd4.1 (3.9-5.9cm)LVOT Diameter2.0 (1.8-2.4cm) PWd0.9 (0.7-1.1cm)LVDs2.5 (2.5-4.0cm) FS (%) 38.7 %SV51.2 ml Aortic Valve AoV Peak Tulio.150.7cm/sAoV VTI35.8cm AO Peak GR.9.1mmHgLVOT Peak Tulio.102.9cm/s AO Mean GR.4mmHgAVA (VMAX)2.10cm2 Mitral Valve MV E Kiywawde298.5cm/sMV DECEL [id number] MV A Ihxemwbp634.4cm/sE/A Ratio1.0 Pulmonary Valve PV Peak Sjqrawki128.4cm/s Tricuspid Valve TR P. Qlkxneee872ks/sTR Peak Gr.22mmHg LEFT VENTRICLE The left ventricle is normal size. There is normal left ventricular wall thickness. The left ventricu lar systolic function is normal and the ejection fraction is within normal range. LV ejection fracti on of 55 to 60%. There is normal LV segmental wall motion. The left ventricular diastolic function an d filling is normal for age. RIGHT VENTRICLE The right ventricle is normal size. There is normal right ventricular wall thickness. The right ventr icular systolic function is normal. ATRIA The left atrium size is normal. The right atrium size is normal. The interatrial septum is intact wit h no evidence for an atrial septal defect or patent foramen ovale as noted on 2-D or Doppler imaging. AORTIC VALVE The aortic valve is normal in structure and function. Doppler and Color Flow revealed trace aortic re gurgitation. There is no significant aortic valvular stenosis. MITRAL VALVE The mitral valve is normal in structure and function. There is no evidence of mitral valve prolapse. There is no mitral valve stenosis. Doppler and Color-flow revealed trace mitral regurgitation. TRICUSPID VALVE The tricuspid valve is normal in structure and function. Doppler and Color Flow revealed trace tricus pid regurgitation. Estimated ejection 25 mmHg. There is no tricuspid valve stenosis. PULMONIC VALVE The pulmonary valve is normal in structure and function. Doppler and Color Flow revealed mild pulmoni c valvular regurgitation. GREAT VESSELS The aortic root is normal in size. The ascending aorta is normal in size. The IVC is normal in size a nd collapses >50% with inspiration. PERICARDIAL EFFUSION There is no evidence of significant pericardial effusion. Critical Notification Critical Value: No <Conclusion> The left ventricle is normal size. The left ventricular systolic function is normal and the ejection fraction is within normal range. LV ejection fraction of 55 to 60%. There is normal LV segmental wall motion. Doppler and Color Flow revealed trace aortic regurgitation. There is no significant aortic valvular stenosis. Doppler and Color-flow revealed trace mitral regurgitation. Doppler and Color Flow revealed trace tricuspid regurgitation. Estimated ejection 25 mmHg. Signed by : Dao Adame MD Electronically Approved : 12/31/2021 17:26:47
--- NOTE | 2022-01-01 11:57 | RAD ---
MR#: [id number] Date of Study: 12/31/2021 Ordering Physician: MAGGY LR, Referring Physician: CHAITANYA WRIGHT Tech: Linda Rai RT (R) (N) APPROVED REPORT Test Type: Pharmacological Stress Nurse/Tech: SHYANN ENRIQUEZ Test Indications: CAD Cardiac History: CAD, NM, STENTS- SEE EMR Medications: SEE EMR Medical History: SEE EMR Resting ECG: SR Resting Heart Rate: 67 bpm Resting Blood Pressure: 194/86mmHg Pretest Chest Pain: No chest pain Nurse/Tech Notes S1,S2, LUNGS CTA, DENIED CHEST PAIN OR SHORTNESS OF BREATH. BP ELEVATED. PT ATTEMPTED TREADMILL TEST, BUT UNABLE TO COMPLETE DUE TO CHEST TIGHTNESS AND SOA. Pharm. Details Pharmacologic stress testing was performed using 0.4mg per 5ml of regadenoson given intravenously ove r 7-10 seconds. Stress Symptoms DURING LEXISCAN, PT C/O CHEST TIGHTNESS, PAIN BETWEEN HER SHOULDER BLADES AND SOA. VSS. PAIN RESOLVED BY THE END OF TESTING.. POST EXERCISE Reason for Termination: Infusion complete Max HR: 127 bpm Max Blood Pressure: 194/86mmHg Blood Pressure response to exercise: Abnormal blood pressure response during stress. Heart Rate response to exercise: WNL Chest Pain: Yes. INTERPRETATION Stress EKG Conclusion: The resting EKG shows a sinus rhythm with nonspecific ST segment changes. The stress EKG showed no significant changes from baseline. No EKG evidence of stress-induced ischemia. Imaging Protocol IMAGE PROTOCOL: Rest Tc-99m/stress Tc-99m 1 day Rest: Stress: Viability: Radiopharm.Tc99m ZrnmujfklSo59e Sestamibi Enpy51rYn 31mCi Duration 15min. 10min. Img Date 12/31/2021 12/31/2021 Inj-Img Kfpg95zng. 60min. Rest Admin Site:IV - Right AntecubitalAdministrator:MAXINE Joshi, ARRT (R)(N) Stress Admin Site: IV - Right AntecubitalAdministrator: MAXINE Joshi, ARRT (R)(N) STRESS DATA End Diast. Vol.60.0mlAv. Heart Rate88.0bpm End Syst. Vol.7.0mlCO Index BSA0.0L/min Myocardial Gnjb851.0gEject. Hjpkfkpj48.0% Stress Rates Pk. Fill Rate5.64EDV/secLVtime Pk. Fill 181.60msec Pk. Empty Rate5.93ESV/secLVtime Pk. Cspes450.42msec /3 Pk. Fill1.43EDV/sec Stress Scores Regional WT1.00Summed WT6.00 Regional WM0.00Summed WM0.00 LV Perfusion The stress scans showed no significant defects. The rest scans showed no significant defects. Nuclear imaging shows no reversible ischemia or infarct. Wall Motion Left ventricular systolic function is intact with an ejection fraction of greater than 70%. LV Perf. Quant 17 Seg. SSS1.00 17 Seg. SRS0.00 17 Seg. SDS1.00 Stress Defect Extent (% LAD)0.00Rest Defect Extent (% LAD)0.00Rev. Defect Extent (% LAD)0.00 Stress Defect Extent (% LCX) 0.00Rest Defect Extent (% LCX)0.00Rev. Defect Extent (% LCX)0.00 Stress Defect Extent (% RCA)0.00Rest Defect Extent (% RCA)0.00Rev. Defect Extent (% RCA)0.00 Stress Defect Extent (% ABDIAS)0.00Rest Defect Extent (% ABDIAS)0.00Rev. Defect Extent (% ABDIAS)0.00 Conclusion 1. Attempts at a treadmill stress test were terminated due to shortness of breath and chest pressure. 2. On Lexiscan MPI testing there is no EKG evidence of reversible ischemia. 3. Nuclear imaging shows no reversible ischemia or infarct. 4. Left ventricular systolic function is intact with an ejection fraction of greater than 75%. 5. Moderately low risk Lexiscan nuclear stress test as above with the patient unable to complete a tr eadmill stress test due to shortness of breath and reported chest pressure. Signed by : Dao Adame MD Electronically Approved : 01/01/2022 11:56:27
== END ==
LOC: NM 08:43
PROVIDERS: ATTEND Internal Medicine Cardiovascular Disease
DX: I37.1 Nonrheumatic pulmonary valve insufficiency (principal); I25.10 Atherosclerotic heart disease of native coronary artery without angina pectoris
CPT/HCPCS: 78452; 93017; 93306; A9500; J2785; C8929

== ENCOUNTER → 2022-03-10 | Outpatient (CLI) | payer OTHER, MEDICAID ==
[~2022-03-10] MED LIST changes: -EMPA25TA PO; +EMPA25TA3 PO; -REGADENOSON 0.4 MG/5 ML DISP.SYRIN. IV ONE
[2022-03-10 09:53] LABS: BASO % 1 % (0-3); EOS % 1 % (0-3); HEMATOCRIT 34.8 % (36.0-47.0); HEMOGLOBIN 11.5 g/dL (12.0-15.5); LYMPH # 0.7 x10^3/uL (1.0-4.8); LYMPH % 19 % (24-48); MEAN CORPUSCULAR HEMOGLOBIN 27 pg (25-35); MEAN CORPUSCULAR HGB CONC 33 g/dL (31-37); MEAN CORPUSCULAR VOLUME 83 fL (79-100); MONO # 0.5 x10^3/uL (0.0-1.1); MONO % 15 % (0-9); NEUT # 2.3 x10^3/uL (1.8-7.7); NEUT % 65 % (31-73); PLATELET COUNT 201 x10^3/uL (140-400); RED CELL DISTRIBUTION WIDTH 13.6 % (11.5-14.5); WHITE BLOOD COUNT 3.5 x10^3/uL (4.0-11.0)
[2022-03-10 10:09] LABS: CALCIUM 9.2 mg/dL (8.5-10.1); CREATININE 1.1 mg/dL (0.6-1.0); GFR 59.4; POTASSIUM 4.5 mmol/L (3.5-5.1)
[2022-03-10 10:13] LABS: ALBUMIN 3.6 g/dL (3.4-5.0); TOTAL BILIRUBIN 0.5 mg/dL (0.2-1.0); TOTAL PROTEIN 7.3 g/dL (6.4-8.2)
== END ==
LOC: ONCLAB 08:57
PROVIDERS: ATTEND Internal Medicine Hematology & Oncology
DX: D64.9 Anemia, unspecified (principal)
CPT/HCPCS: 36415; 80053; 85025